=== PATIENT | female | born 1975 | race Caucasian/White ===

== ENCOUNTER → 2016-09-02 | Day surgery (SDC) | payer BC ==
[2016-08-31 07:38] VITALS: BMI 41.0
[~2016-09-02] VITALS: Ht 165.1 cm; Wt 110.9 kg
[~2016-09-02] MED LIST: B-COTAB18 PO; BUPR-79 PO; BXN500 PO; CALCTAB36 PO; CEFD1CAP14 PO; CHOL1CAP85 PO; FENTANYL CITRATE INJ 50 MCG/1 ML 2 ML VIAL ONE; FRCT/ PO; LEVO200T PO; LEVO25TA PO; LIDOCAINE HCL 2% 2 ML VIAL (20MG/ML) ONE; METF500T5 PO; MISCCAP80 PO; PROPOFOL IV EMULSION 10 MG/ML 20 ML VIAL IV ONE; QSTP PO; TPM/50 PO
[2016-09-02 14:36] VITALS: Ht 165.1 cm; Wt 110.9 kg
--- NOTE | 2016-09-02 15:12 | Endo History and Physical ---
History & Physical Date of Service: Sep 02, 2016. Chief Complaint: DIARRHEA Referring Physician: DR PALACIOS History of Present Illness 41 yo CF who presents for colonoscopy secondary to diarrhea. Past Medical History Hypertension, Thyroid Disease, Depression Past Surgical History Hx Cardiac Surgery: No Hx Internal Defibrillator: No Hx Pacemaker: No Hx Abdominal Surgery: Yes (BRYANT, 3 C-SECTIONS, BIRDIE, LAPAROSCOPY, TUBAL LIGATION) Hx of Implantable Prosthesis: No Hx Post-Op Nausea and Vomiting: No Hx Cancer Surgery: No Hx Thoracic Surgery: No Hx Orthopedic: No Hx Urinary Tract Surgery: Yes (BLADDER SLING) Family History IBD Social History Smoking Status: Current Every Day Smoker Hx Substance Use: No Hx Alcohol Use: No Allergies Coded Allergies: Amoxicillin (Verified Allergy, Mild, RASH, 09/02/16) Clavulanic Acid (Verified Allergy, Mild, RASH, 09/02/16) Morphine (Unverified Allergy, Unknown, UNSURE OF REACTION SHE HAD, 09/02/16) Promethazine (Verified Allergy, Unknown, ITCHING, 09/02/16) Tomato (Verified Allergy, Unknown, RASH, 09/02/16) Hydromorphone (Verified Adverse Reaction, Intermediate, ABDOMINAL CRAMPING /CHEST DISCOMFORT, 09/02/16) Current Medications Reported Home Medications Medications Dose Route/Sig Max Daily Dose Days Date Category Vitamin B Complex (B-Complex Vitamins) 1 Tab Tab 1 Tab PO QPM 08/31/16 Reported Synthroid (Levothyroxine Sodium) 200 Mcg Tab 200 Mcg PO QAM 08/31/16 Reported Synthroid (Levothyroxine Sodium) 25 Mcg Tab 25 Mcg PO 5XD 08/31/16 Reported Vitamin D3 (Cholecalciferol) 10,000 Unit Cap 1 Cap PO HS 08/31/16 Reported Omnicef (Cefdinir) 300 Mg Cap 300 Mg PO Q12H 07/19/16 Reported Calcitrate (Calcium Citrate-Vitamin D) 1 Tab Tab 1 Tab PO HS 05/17/16 Reported Clarithromycin 500 Mg Tab 1,000 Mg PO BID 05/17/16 Reported Topamax (Topiramate) 50 Mg Tab 50 Mg PO BID 05/17/16 Reported Glucophage Er (Metformin HCl) 500 Mg Tab 1 Tab PO BID 05/17/16 Reported Probiotic (Probiotic Product) 1 Cap Cap 1 Cap PO DAILY AFTER ANX 12/25/15 Reported Vital Signs Weight (Kilograms): 110.91 Height (Feet): 5 Height (Inches): 5 Date Time Temp Pulse Resp B/P Pulse Ox O2 Delivery O2 Flow Rate FiO2 09/02/16 14:43 36.4 79 20 155/87 98 Room Air Physical Exam General Appearance: WD/WN, no apparent distress Respiratory/Chest: Auscultation: breath sounds normal Cardiovascular: Heart Auscultation: RRR Abdomen: Bowel Sounds: normal Inspection & Palpation: soft, non-distended, no tenderness, guarding & rebound Assessment and Plan Assessment: 41 yo CF who presents for colonoscopy secondary to diarrhea. Plan: Proceed with colonoscopy.
--- NOTE | 2016-09-02 15:56 | Discharge Instructions ---
Endoscopy Patient Instructions Date / Procedure(s) Performed Sep 02, 2016. Colonoscopy Allergy Information Coded Allergies: Amoxicillin (Verified Allergy, Mild, RASH, 09/02/16) Clavulanic Acid (Verified Allergy, Mild, RASH, 09/02/16) Morphine (Unverified Allergy, Unknown, UNSURE OF REACTION SHE HAD, 09/02/16) Promethazine (Verified Allergy, Unknown, ITCHING, 09/02/16) Tomato (Verified Allergy, Unknown, RASH, 09/02/16) Hydromorphone (Verified Adverse Reaction, Intermediate, ABDOMINAL CRAMPING /CHEST DISCOMFORT, 09/02/16) Discharge Date / Findings Sep 02, 2016. Colon polyps Random colon biopsies Random stool studies External hemorrhoids Medication Instructions OK to resume all medications today as prescribed. Reported Home Medications Medications Dose Route/Sig Max Daily Dose Days Date Category Vitamin B Complex (B-Complex Vitamins) 1 Tab Tab 1 Tab PO QPM 08/31/16 Reported Synthroid (Levothyroxine Sodium) 200 Mcg Tab 200 Mcg PO QAM 08/31/16 Reported Synthroid (Levothyroxine Sodium) 25 Mcg Tab 25 Mcg PO 5XD 08/31/16 Reported Vitamin D3 (Cholecalciferol) 10,000 Unit Cap 1 Cap PO HS 08/31/16 Reported Omnicef (Cefdinir) 300 Mg Cap 300 Mg PO Q12H 07/19/16 Reported Calcitrate (Calcium Citrate-Vitamin D) 1 Tab Tab 1 Tab PO HS 05/17/16 Reported Clarithromycin 500 Mg Tab 1,000 Mg PO BID 05/17/16 Reported Topamax (Topiramate) 50 Mg Tab 50 Mg PO BID 05/17/16 Reported Glucophage Er (Metformin HCl) 500 Mg Tab 1 Tab PO BID 05/17/16 Reported Probiotic (Probiotic Product) 1 Cap Cap 1 Cap PO DAILY AFTER ANX 12/25/15 Reported Provider Instructions Activity Restrictions - No exercising or heavy lifting for 24 hours. - Do not drink alcohol the day of the procedure. - Do not drive a car or operate machinery until the day after the procedure. - Do not make any important decisions or sign important papers in 24 hours after the procedure. Following Day: - Return to full activity which may include returning to work/school. Diet Start your diet with liquids and light foods (jello, soup, juice, toast). Then eat your usual diet if not nauseated. Treatment For Common After Affects For mild abdominal pain, bloating, or excessive gas: - Rest - Eat lightly - Lie on right side Follow-Up Information Follow-up with DR PALACIOS as scheduled Anesthesia Information What You Should Know You have had a procedure that required some medicine to reduce anxiety and discomfort. This treatment is called moderate sedation. After receiving the treatment, you may be sleepy, but you will be able to breathe on your own. The effects of the treatment may last for several hours. Follow these instructions along with Activity/Diet recommendations noted above: * Do NOT do anything where dizziness or clumsiness would be dangerous. * Rest quietly at home today, then you can be up and about tomorrow. * Have a responsible person stay with you the rest of today. * You may have had an I.V. today. If so, you may take the dressing off later today. Recommendations Call your doctor if: * Trouble breathing * Continuous vomiting for more than 24 hours * Temperature above 101 degrees * Severe abdominal pain or bloating * Pain not relieved by pain medicine ordered * There is increased drainage or redness from any incision * A large amount of rectal bleeding greater than 2-3 tablespoons. (If you had a polyp/s removed or have hemorrhoids, a small amount of blood - from the rectum is to be expected.) * You have any unanswered questions or concerns. IN THE EVENT OF A SERIOUS EMERGENCY, GO TO THE NEAREST EMERGENCY ROOM Your discharge instructions were prepared by provider Chuck Bonilla. Patient Instructions Signature Page Jenifer Kilgore Patient (or Guardian) Signature/Date: I have read and understand the instructions given to me by my caregivers. Caregiver/RN/Doctor Signature/Date: The above-named patient and/or guardian has received patient instructions on this date. + Original Patient Signature Page (only) stays with chart. Please make copy for patient.
--- NOTE | 2016-09-02 16:05 | GI REPORT ---
Procedure Date: 09/02/2016 3:37 PM Procedure: Colonoscopy Indications: Chronic diarrhea Medicines: Monitored Anesthesia Care Complications: No immediate complications. Estimated Blood Loss: Estimated blood loss: none. Procedure: Pre-Anesthesia Assessment: - Prior to the procedure, a History and Physical was performed, and patient medications and allergies were reviewed. The patient's tolerance of previous anesthesia was also reviewed. The risks and benefits of the procedure and the sedation options and risks were discussed with the patient. All questions were answered, and informed consent was obtained. Prior Anticoagulants: The patient has taken no previous anticoagulant or antiplatelet agents. ASA Grade Assessment: II - A patient with mild systemic disease. After reviewing the risks and benefits, the patient was deemed in satisfactory condition to undergo the procedure. After I obtained informed consent, the scope was passed under direct vision. Throughout the procedure, the patient's blood pressure, pulse, and oxygen saturations were monitored continuously. The scope was introduced through the anus and advanced to the terminal ileum. The colonoscopy was performed without difficulty. The patient tolerated the procedure well. The quality of the bowel preparation was good. The terminal ileum, the appendiceal orifice and the rectum were photographed. Findings: Three sessile polyps were found in the transverse colon. The polyps were 3 to 4 mm in size. These polyps were removed with a hot snare. Resection and retrieval were complete. Multiple random biopsies were obtained with cold forceps for histology in the entire colon. Fluid aspiration for cytology was performed in the entire colon. Non-bleeding external hemorrhoids were found during perianal exam. The hemorrhoids were medium-sized. Impression: - Three 3 to 4 mm polyps in the transverse colon, removed with a hot snare. Resected and retrieved. - Non-bleeding external hemorrhoids. - Multiple random biopsies were obtained in the entire colon. - Fluid aspiration was performed. Recommendation: - Resume previous diet. - Continue present medications. - Repeat colonoscopy for surveillance based on pathology results. - Return to primary care physician as previously scheduled. Chuck Bonilla DO 09/02/2016 4:05:16 PM This report has been signed electronically. Note Initiated On: 09/02/2016 3:37 PM
[2016-09-02 16:26] VITALS: BP 131/80; PULSE 71; O2SAT 98
--- NOTE | 2016-09-02 16:31 | Anesthesiology Progress Note ---
Anesthesia Post Op Note Date & Time Sep 02, 2016 at 16:31 Vital Signs Pain Intensity: 0 Vital Signs Past 12 Hours Date Time Temp Pulse Resp B/P Pulse Ox O2 Delivery O2 Flow Rate FiO2 09/02/16 16:26 71 20 131/80 98 Room Air 09/02/16 16:11 73 20 126/84 98 Room Air 09/02/16 15:56 80 20 117/79 95 Room Air 09/02/16 14:43 36.4 79 20 155/87 98 Room Air Notes Mental Status: alert / awake / arousable, participated in evaluation Pt Amnestic to Procedure: Yes Nausea / Vomiting: adequately controlled Pain: adequately controlled Airway Patency, RR, SpO2: stable & adequate BP & HR: stable & adequate Hydration State: stable & adequate Anesthetic Complications: no major complications apparent
== END | disposition home or self-care (01) ==
LOC: C.GI 14:22
PROVIDERS: ATTEND Internal Medicine
DX: K52.9 Noninfective gastroenteritis and colitis, unspecified (principal); D12.3 Benign neoplasm of transverse colon; K64.4 Residual hemorrhoidal skin tags; I10 Essential (primary) hypertension; E07.9 Disorder of thyroid, unspecified; F32.9 Major depressive disorder, single episode, unspecified; Z98.51 Tubal ligation status; Z98.890 Other specified postprocedural states; F17.210 Nicotine dependence, cigarettes, uncomplicated; Z88.1 Allergy status to other antibiotic agents; Z88.8 Allergy status to other drugs, medicaments and biological substances

== ENCOUNTER 2016-10-25 01:34 | Inpatient (IN) | payer BC ==
[~2016-10-25] VITALS: Ht 165.1 cm; Wt 112.5 kg
[~2016-10-25 01:34] MED LIST changes: -BUPR-79 PO; -FENTANYL CITRATE INJ 50 MCG/1 ML 2 ML VIAL ONE; -FRCT/ PO; -LIDOCAINE HCL 2% 2 ML VIAL (20MG/ML) ONE; -PROPOFOL IV EMULSION 10 MG/ML 20 ML VIAL IV ONE; -QSTP PO
[2016-10-25 02:24] LABS: URINE APPEARANCE CLEAR (CLEAR); URINE BILIRUBIN NEG (NEG); URINE COLOR YELLOW; URINE EPITHELIAL CELL AUTO 0-5 /lpf (0-5); URINE NITRITE NEG (NEG); URINE SPECIFIC GRAVITY 1.006 (1.000-1.030); UROBILINOGEN NEG (NEG); ZZURINE CULT IF INDIC CATH NO
[2016-10-25 02:25] LABS: MANUAL MICROSCOPIC REQUIRED? NO; REVIEW REQ? NO
[2016-10-25 02:37] LABS: INR 0.9 (0.9-1.1); PARTIAL THROMBOPLASTIN RATIO 0.9; PROTHROMBIN TIME (PATIENT) 9.5 SECONDS (9.0-12.0)
[2016-10-25 02:42] LABS: CALCIUM 9.1 mg/dl (8.5-10.1); CREATININE 0.83 mg/dl (0.60-1.20); POTASSIUM 4.1 mmol/L (3.5-5.1)
[2016-10-25 03:02] LABS: HEMATOCRIT 41.6 % (37-47); MEAN CELL VOLUME 89.1 fL (80-100); MEAN CORPUSCULAR HEMOGLOBIN 30.6 pg (25-34); MEAN CORPUSCULAR HGB CONC 34.4 g/dl (32-36); MEAN PLATELET VOLUME 11.7 fL (7.4-10.4); PLATELET COUNT 234 K/uL (130-400); RED BLOOD COUNT 4.67 M/uL (4.2-5.4); WHITE BLOOD COUNT 11.58 K/uL (4.8-10.8)
[2016-10-25 03:06] LABS: LYME DISEASE AB IGG NEG (NEG); LYME DISEASE AB IGM NEG (NEG)
[2016-10-25 03:56] LABS: BASO % 0.3 %; BASO ABS # 0.04 K/uL (0-0.2); COMPLETE YES; EOS % 1.7 %; IG% 0.4 %; LARGE PLATELETS 1+; LYMPH % 30.9 %; LYMPH ABS # 3.58 K/uL (1.2-3.4); MONO % 6.6 %; NEUT % 60.1 %
[2016-10-25] MEDS ORDERED: ONDANSETRON INJ 2 MG/ML 2 ML VIAL IV PRN (04:00)
[2016-10-25] MEDS ORDERED: ACETAMINOPHEN 325 MG TAB PO PRN (04:00)
[2016-10-25] MEDS ORDERED: METHYLPREDNISOLONE 125 MG VIAL IV STA (04:00)
[2016-10-25] MEDS ORDERED: IV FLUIDS COMPLETED PRN (04:45)
--- NOTE | 2016-10-25 05:23 | EMERGENCY ROOM VISIT NOTE ---
History Report prepared by Lenka: Delma Kebede Under the Supervision of: Dr. Gail Soriano D.O. 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 The patient states that she seemed to become weak this evening and sudden onset AMS very similar to presentation from 1 year ago when she had encephalopathy which was thought to be secondary to lyme disease. He reports that her doctor has had her on high dose antibiotics for a long time and 3 weeks ago he started to take her off of it. He notes that the glaze in her eyes is similar to before and her symptoms today came on suddenly. Source of History: spouse/significant other Onset: just SHAKE MAKER Position: other (global) Quality: other (AMS) Timing: constant Note: Pt notes glaze in eyes. Review of Systems See HPI for pertinent positives & negatives. A total of 10 systems reviewed and were otherwise negative. Past Medical & Surgical Medical Problems: (1) Altered mental status (2) Blurry vision (3) Dysfunctional uterine bleeding (4) Hypothyroidism (5) Peptic reflux disease (6) Supracervical hysterectomy (7) Temporomandibular [id number] syndrome (8) Weakness of both lower extremities Family History FH: lung disease FHx: cancer FHx: gallbladder disease Hypertension Social History Smoking Status: Current Every Day Smoker Alcohol Use: none Drug Use: none, other Marital Status: in relationship Housing Status: lives with family, lives with significant other Occupation Status: employed Current/Historical Medications Scheduled B-Complex Vitamins (Vitamin B Complex), 1 TAB PO QPM Calcium Citrate-Vitamin D (Calcitrate), 1 TAB PO HS Cholecalciferol (Vitamin D3), 1 CAP PO HS Levothyroxine Sodium (Synthroid), 25 MCG PO DAILY Levothyroxine Sodium (Synthroid), 200 MCG PO QAM Metformin Hcl Er (Glucophage Er), 1,000 MG PO BID Topiramate (Topamax), 50 MG PO BID Allergies Coded Allergies: Amoxicillin (Verified Allergy, Mild, RASH, 10/25/16) Clavulanic Acid (Verified Allergy, Mild, RASH, 10/25/16) Morphine (Unverified Allergy, Unknown, UNSURE OF REACTION SHE HAD, 10/25/16 ) Promethazine (Verified Allergy, Unknown, ITCHING, 10/25/16) Tomato (Verified Allergy, Unknown, RASH, 10/25/16) Hydromorphone (Verified Adverse Reaction, Intermediate, ABDOMINAL CRAMPING /CHEST DISCOMFORT, 10/25/16) Physical Exam Vital Signs Date Time Temp Pulse Resp B/P Pulse Ox O2 Delivery O2 Flow Rate FiO2 10/25/16 02:06 90 10/25/16 01:43 37.3 74 16 146/90 98 Room Air 10/25/16 01:43 98 Room Air Physical Exam General: Opens eyes to verbal or painful stimuli. HEENT: Head - normocephalic and atraumatic Pupils are equal, round, and reactive to light. Extraocular eye muscles are intact, and sclera are anicteric. Nose - moist nasal mucosa without discharge. Mouth - moist buccal mucosa. Oropharynx is nonerythematous and there is no tonsillar exudate or edema noted. Neck: Supple; no JVD, nuchal rigidity, cervical lymphadenopathy. Heart: Regular rate and rhythm. There is a normal S1 and S2 with no murmurs, clicks, or gallops appreciated. Lungs: Clear to auscultation bilaterally with no wheezes, rales, or rhonchi. Abdomen: Soft, completely nontender, nondistended, with good bowel sounds. There are no palpable pulsatile masses or hepatosplenomegaly. There is no guarding, rigidity, or rebound noted. Extremities: No evidence of cyanosis, clubbing, or edema. There are easily palpable peripheral pulses. Skin: warm and dry with good turgor and no rashes. Neuro: Would not follow any commands. She seemed to move all 4 extremities without any difficulty. Medical Decision & Procedures ER Provider Diagnostic Interpretation: Radiology results as stated below per my review and the radiologist's interpretation: CT Head: Comparison 12/02/2015 No ICH, mass effect or edema. No evidence of acute cortical stroke. Visualized sinuses and mastoid air cells are clear. Chest X-Ray: Under penetrated, no pulmonary infiltrates, cardiomegaly. Laboratory Results Test 10/25/16 01:50 10/25/16 01:57 10/25/16 02:05 10/25/16 02:53 Prothrombin Time 9.5 SECONDS (9.0-12.0) Prothromb Time International Ratio 0.9 (0.9-1.1) Activated Partial Thromboplast Time 24.6 SECONDS (21.0-31.0) Partial Thromboplastin Ratio 0.9 Est Creatinine Clear Calc Drug Dose 113.5 ml/min Total Bilirubin 0.3 mg/dl (0.2-1) Aspartate Amino Transf (AST/SGOT) 11 U/L (15-37) Alanine Aminotransferase (ALT/SGPT) 32 U/L (12-78) Alkaline Phosphatase 100 U/L (45-117) Total Protein 7.3 gm/dl (6.4-8.2) Albumin 3.7 gm/dl (3.4-5.0) Globulin 3.6 gm/dl (2.5-4.0) Albumin/Globulin Ratio 1.0 (0.9-2) Chemistry Specimen Hemolysis Lyme Disease IgG Antibody NEG (NEG) Lyme Disease IgM Antibody NEG (NEG) Bedside Lactic Acid Venous 0.78 mmol/L (0.90-1.70) Urine Color YELLOW Urine Appearance CLEAR (CLEAR) Urine pH 6.0 (4.5-7.5) Urine Specific [place] 1.006 (1.000-1.030) Urine Protein NEG (NEG) Urine Glucose (UA) NEG (NEG) Urine Ketones NEG (NEG) Urine Occult Blood NEG (NEG) Urine Nitrite NEG (NEG) Urine Bilirubin NEG (NEG) Urine Urobilinogen NEG (NEG) Urine Leukocyte Esterase NEG (NEG) Urine WBC (Auto) 0 /hpf (0-5) Urine RBC (Auto) 0-4 /hpf (0-4) Urine Hyaline Casts (Auto) 0 /lpf (0-5) Urine Epithelial Cells (Auto) 0-5 /lpf (0-5) Urine Bacteria (Auto) NEG (NEG) RDW Standard Deviation 43.4 fL (36.4-46.3) RDW Coefficient of Variation 13.2 % (11.5-14.5) White Blood Count 11.58 K/uL (4.8-10.8) Red Blood Count 4.67 M/uL (4.2-5.4) Hemoglobin 14.3 g/dL (12.0-16.0) Hematocrit 41.6 % (37-47) Mean Corpuscular Volume 89.1 fL (80-100) Mean Corpuscular Hemoglobin 30.6 pg (25-34) Mean Corpuscular Hemoglobin Concent 34.4 g/dl (32-36) Platelet Count 234 K/uL (130-400) Mean Platelet Volume 11.7 fL (7.4-10.4) Neutrophils (%) (Auto) 60.1 % Lymphocytes (%) (Auto) 30.9 % Monocytes (%) (Auto) 6.6 % Eosinophils (%) (Auto) 1.7 % Basophils (%) (Auto) 0.3 % Neutrophils # (Auto) 6.94 K/uL (1.4-6.5) Lymphocytes # (Auto) 3.58 K/uL (1.2-3.4) Monocytes # (Auto) 0.77 K/uL (0.11-0.59) Eosinophils # (Auto) 0.20 K/uL (0-0.5) Basophils # (Auto) 0.04 K/uL (0-0.2) Immature Granulocyte % (Auto) 0.4 % Immature Granulocyte # (Auto) 0.05 K/uL (0.00-0.02) Large Platelets 1+ Laboratory results per my review. ECG Indication: altered mental status Rate (beats per minute): 73 Rhythm: normal sinus Findings: no acute ischemic change, no ectopy ED Course 0137: Past medical records reviewed. The patient was evaluated in room A2. A complete history and physical exam was performed. An IV lock was initiated and labs are drawn as above. The patient went for a CT scan of the brain. 0229: I reevaluated the patient. She is able to drink liquid. She still seems quite confused. 0316: I reevaluated the patient. She has returned to her normal state. 0352: Discussed the patient's case with Dr. Amador of [facility]. The patient will be evaluated for further management. 0407: Upon reevaluation, I discussed findings and results with the patient. She verbalized agreement of the treatment plan. I spoke with Dr. Amador of the [facility] Hospitalist Service. The patient will be evaluated for further management and care. Medical Decision The patient is a 41 year old female who presents to the ED with altered mental status. Differential diagnosis includes seizure, post-ictal state, recurrent encephalopathy, acute CVA. LABS: WBC 11.5 Stable H&H Negative Lactic Acid Normal LFTs and Renal Function Urinalysis Normal Lyme IDG Negative Lyme IGM Negative This is a 41-year-old female patient presents to the emergency department with a sudden episode of altered mental status. The denies any seizure activity at home. 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 He describes her onset of symptoms very similar to those when she was diagnosed with encephalopathy. The patient's mental status has returned to normal here in the emergency department. CT scan of the brain was unremarkable. I was concerned about the possibility of a seizure since the patient appeared to be postictal upon her arrival here in the emergency department. Of note, the patient had recently decreased her oral dose of antibiotics that she had been on long-term for Lyme disease. Consults Time Called: [phone] Consulting Physician: Marjorie - [facility] Returned Call: [phone] Discussed the patient's case with Dr. Amador of [facility]. The patient will be evaluated for further management. Impression Primary Impression: Encephalopathy Scribe Attestation The scribe's documentation has been prepared under my direction and personally reviewed by me in its entirety. I confirm that the note above accurately reflects all work, treatment, procedures, and medical decision making performed by me. Departure Information Dispostion Being Evaluated By Hospitalist Referrals Alin Sprague M.D. (PCP) Patient Instructions My [facility]
[2016-10-25] MEDS: NSS + 20MEQ KCL 1000ML 1,000 ML IV SCH ×2 (05:30→17:28)
[2016-10-25 05:45] VITALS: BP 131/79; PULSE 71; TEMP 36.8; O2SAT 95; Ht 165.1 cm; Wt 112.5 kg
[2016-10-25] MEDS: LEVOTHYROXINE SODIUM TAB 200 MCG, LEVOTHYROXINE SODIUM TAB 25 MCG PO SCH ×2 (06:08)
[2016-10-25] MEDS: CEFTRIAXONE SOD INJ 1 GM in DEXTROSE 5% ADD-VANTAGE 50ML 50 ML IV SCH (06:08)
--- NOTE | 2016-10-25 06:27 | History and Physical ---
History & Physical Date & Time of Service: Oct 25, 2016 at 06:14 Chief Complaint: Altered Mental Status Primary Care Physician: Alin Sprague M.D. History of Present Illness Source: patient, partner The patient is a 41-year-old female who presents to the emergency department with the sudden onset of altered mental status began to spread arrival. Her reports that she seemed to be weak earlier in the evening and then she suddenly became altered in a similar presentation to 12/03/2015 when she was diagnosed with Lyme disease encephalopathy. He reports that she had been on antibiotics for long interval time, and she was tapered off antibiotics beginning 3 weeks ago and is now on none. She's had no recent travel, no sick exposures. They continue to live in the same area where there are a number of ticks, but she has not had any overt tick bites. 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 Family History FH: lung disease FHx: cancer FHx: gallbladder disease Hypertension Social History Smoking Status: Current Every Day Smoker Smokeless Tobacco Use: No Alcohol Use: none Drug Use: none, other Marital Status: , in relationship Housing status: lives with family Occupational Status: employed Immunizations History of Influenza Vaccine: No History of Tetanus Vaccine?: No History of Pneumococcal: No History of Hepatitis B Vaccine: No Multi-Drug Resistant Organisms History of MDRO: No Allergies Coded Allergies: Amoxicillin (Verified Allergy, Mild, RASH, 10/25/16) Clavulanic Acid (Verified Allergy, Mild, RASH, 10/25/16) Morphine (Unverified Allergy, Unknown, UNSURE OF REACTION SHE HAD, 10/25/16 ) Promethazine (Verified Allergy, Unknown, ITCHING, 10/25/16) Tomato (Verified Allergy, Unknown, RASH, 10/25/16) Hydromorphone (Verified Adverse Reaction, Intermediate, ABDOMINAL CRAMPING /CHEST DISCOMFORT, 10/25/16) Home Medications Scheduled B-Complex Vitamins (Vitamin B Complex), 1 TAB PO QPM Calcium Citrate-Vitamin D (Calcitrate), 1 TAB PO HS Cholecalciferol (Vitamin D3), 1 CAP PO HS Levothyroxine Sodium (Synthroid), 25 MCG PO DAILY Levothyroxine Sodium (Synthroid), 200 MCG PO QAM Metformin Hcl Er (Glucophage Er), 1,000 MG PO BID Topiramate (Topamax), 50 MG PO BID Review of Systems The patient denies chest pain, palpitations, shortness of breath, cough, lower extremity swelling, vision change, hearing change, sore throat, fevers, chills, sweats, weight change, vomiting, abdominal pain, pelvic pain, blood in urine or stool, dysuria, urinary frequency or urgency, abnormal bruising or bleeding, imbalance, focal weakness, numbness or tingling in arms or legs, arthralgias or myalgias, back or neck pain, night sweats, or allergy symptoms. The review of systems is otherwise negative other than for that already noted above, and at least 10 systems have been reviewed. Physical Exam Vital Signs Date Time Temp Pulse Resp B/P Pulse Ox O2 Delivery O2 Flow Rate FiO2 10/25/16 05:45 36.8 71 20 131/79 95 Room Air 10/25/16 04:39 73 18 140/91 97 Room Air 10/25/16 02:06 90 10/25/16 01:43 37.3 74 16 146/90 98 Room Air 10/25/16 01:43 98 Room Air The patient is awake, well-developed and adequately nourished, alert and oriented 3, normocephalic and atraumatic, lying in bed and in no acute distress. HEENT--PERRL, EOMI, mucous membranes and oropharynx dry. Neck--supple, no JVD or bruits, thyroid normal, trachea midline, no adenopathy. Heart--normal S1 and S2, no extra beats, no murmurs, rubs or gallops. Lungs--clear bilaterally with good air movement, no respiratory distress, no accessory muscle use. Abdomen--normal bowel sounds and soft, nontender and nondistended, no hernias or masses, no organomegaly. Extremities--no cyanosis, clubbing or edema. There are good distal pulses b/l. Dermatologic--normal skin turgor, normal color, warm and dry, no abnormal lymph nodes, no rash. Neurologic--cranial nerves II through XII grossly intact, motor and sensory examination normal. Rheumatologic--normal range of motion, nontender, muscles and joints. Psychiatric--normal affect. Diagnostics Laboratory Results Results Past 24 Hours Test 10/25/16 01:50 10/25/16 01:57 10/25/16 02:05 10/25/16 02:53 Range/Units Prothrombin Time 9.5 9.0-12.0 SECONDS Prothromb Time International Ratio 0.9 0.9-1.1 Activated Partial Thromboplast Time 24.6 21.0-31.0 SECONDS Partial Thromboplastin Ratio 0.9 Sodium Level 142 136-145 mmol/L Potassium Level 4.1 3.5-5.1 mmol/L Chloride Level 109 98-107 mmol/L Carbon Dioxide Level 26 21-32 mmol/L Anion Gap 7.0 3-11 mmol/L Blood Urea Nitrogen 17 7-18 mg/dl Creatinine 0.83 0.60-1.20 mg/dl Est Creatinine Clear Calc Drug Dose 113.5 ml/min Estimated GFR () 103.0 Estimated GFR (Non- 88.8 BUN/Creatinine Ratio 20.0 10-20 Random Glucose 99 70-99 mg/dl Calcium Level 9.1 8.5-10.1 mg/dl Total Bilirubin 0.3 0.2-1 mg/dl Aspartate Amino Transf (AST/SGOT) 11 15-37 U/L Alanine Aminotransferase (ALT/SGPT) 32 12-78 U/L Alkaline Phosphatase 100 45-117 U/L Total Protein 7.3 6.4-8.2 gm/dl Albumin 3.7 3.4-5.0 gm/dl Globulin 3.6 2.5-4.0 gm/dl Albumin/Globulin Ratio 1.0 0.9-2 Chemistry Specimen Hemolysis Lyme Disease IgG Antibody NEG NEG Lyme Disease IgM Antibody NEG NEG Bedside Lactic Acid Venous 0.78 0.90-1.70 mmol/L Urine Color YELLOW Urine Appearance CLEAR CLEAR Urine pH 6.0 4.5-7.5 Urine Specific [place] 1.006 1.000-1.030 Urine Protein NEG NEG Urine Glucose (UA) NEG NEG Urine Ketones NEG NEG Urine Occult Blood NEG NEG Urine Nitrite NEG NEG Urine Bilirubin NEG NEG Urine Urobilinogen NEG NEG Urine Leukocyte Esterase NEG NEG Urine WBC (Auto) 0 0-5 /hpf Urine RBC (Auto) 0-4 0-4 /hpf Urine Hyaline Casts (Auto) 0 0-5 /lpf Urine Epithelial Cells (Auto) 0-5 0-5 /lpf Urine Bacteria (Auto) NEG NEG White Blood Count 11.58 4.8-10.8 K/uL Red Blood Count 4.67 4.2-5.4 M/uL Hemoglobin 14.3 12.0-16.0 g/dL Hematocrit 41.6 37-47 % Mean Corpuscular Volume 89.1 80-100 fL Mean Corpuscular Hemoglobin 30.6 25-34 pg Mean Corpuscular Hemoglobin Concent 34.4 32-36 g/dl Platelet Count 234 130-400 K/uL Mean Platelet Volume 11.7 7.4-10.4 fL Neutrophils (%) (Auto) 60.1 % Lymphocytes (%) (Auto) 30.9 % Monocytes (%) (Auto) 6.6 % Eosinophils (%) (Auto) 1.7 % Basophils (%) (Auto) 0.3 % Neutrophils # (Auto) 6.94 1.4-6.5 K/uL Lymphocytes # (Auto) 3.58 1.2-3.4 K/uL Monocytes # (Auto) 0.77 0.11-0.59 K/uL Eosinophils # (Auto) 0.20 0-0.5 K/uL Basophils # (Auto) 0.04 0-0.2 K/uL RDW Standard Deviation 43.4 36.4-46.3 fL RDW Coefficient of Variation 13.2 11.5-14.5 % Immature Granulocyte % (Auto) 0.4 % Immature Granulocyte # (Auto) 0.05 0.00-0.02 K/uL Large Platelets 1+ Microbiology Results 10/25/16 Blood Culture, Received Pending 10/25/16 Blood Culture, Received Pending Diagnostic Radiology CAT scan of the head without contrast shows no acute findings. EKG EKG shows normal sinus rhythm at 73 bpm, there are no acute ST-T changes. Impression Assessment and Plan Altered mental status/history [facility] COOK Lyme encephalopathy 12/03/2015--patient will be admitted to the telemetry unit, for cardiac rhythm monitoring, and frequent neuro checks. She appears be back to her baseline at this point. She reports that she has been doing well until just prior to arrival, and associates the abrupt worsening tapering to off of antibiotics that she had been on per her physician. Her Lyme antibody tests are negative today. Continue topiramate 50 mg by mouth twice a day. We'll start her on hydroxychloroquine 200 mg by mouth twice a day, to deal with postinflammatory Lyme state, and she can discuss with her physician in the outpatient setting the re starting of antibiotics if they choose. Microcytic colitis--her antibodies have been tapered recently due to the persistence of diarrhea, with colonoscopy revealing this diagnosis. We'll do a trial of cholestyramine 4 g twice a day and increase probiotics. Reducing her metformin is a good choice to help minimize issues with loose stools. Hypothyroidism--continue levothyroxine sodium at 225 g by mouth daily. Diabetes mellitus--she has tapered her metformin to 500 mg by mouth daily. Level of Care Telemetry Advanced Directives Existing Advance Directive: No Existing Living Will: No Existing Power of Tinning Machine Set Up Operator: No Resuscitation Status FULL RESUSCITATION VTE Prophylaxis VTE Risk Assessment Done? Y/N: Yes Risk Level: Low Given or contraindicated: SCD's Social Service Consult None Apply
[2016-10-25 07:22] VITALS: BP 130/80; PULSE 67; TEMP 36.8; O2SAT 97
[2016-10-25] MEDS: LACTOBACILLUS ACIDOPHILUS (FLORANEX) TAB PO SCH ×3 (08:16→17:24)
[2016-10-25] MEDS: HYDROXYCHLOROQUINE SULFATE 200 MG TAB PO SCH ×2 (08:16→21:45)
[2016-10-25] MEDS: TOPIRAMATE 25 MG TAB PO SCH ×2 (08:17→21:45)
[2016-10-25] MEDS: VITAMIN B COMPLEX TAB PO SCH (08:17)
--- NOTE | 2016-10-25 08:34 | DIAGNOSTIC IMAGING REPORT ---
CHEST ONE VIEW PORTABLE CLINICAL HISTORY: Sepsis COMPARISON STUDY: Chest radiograph January 09, 2016. FINDINGS: This exam is compromised by suboptimal penetration. No pneumothorax or pleural effusion is present. There is no lobar consolidation. There is no evidence of pulmonary edema. Cardiomediastinal silhouette is stable. IMPRESSION: No acute cardiopulmonary findings. Electronically signed by: Rubén Lemus M.D. 10/25/2016 8:33 AM Dictated Date/Time: 10/25/2016 8:33 AM
--- NOTE | 2016-10-25 08:34 | DIAGNOSTIC IMAGING REPORT ---
CT OF THE HEAD WITHOUT CONTRAST CLINICAL HISTORY: Confusion. Lyme disease. COMPARISON STUDY: Head CT December 03, 2015 and MRI of the brain December 03, 2015. CT DOSE: 537.48 mGy.cm TECHNIQUE: Helical axial images of the head were obtained without IV contrast. Automated exposure control was utilized for the study. FINDINGS: No acute intracranial hemorrhage, midline shift or mass effect is present. Ventricular system is normal. Basilar cisterns are patent. There are no extra-axial collections. Salgado-white differentiation is maintained. There are no findings to suggest acute dural sinus thrombosis or acute territorial infarct. There is no calvarial fracture. Visualized portions of the sinuses and mastoid air cells are clear. IMPRESSION: No acute intracranial findings. Electronically signed by: Rubén Lemus M.D. 10/25/2016 8:32 AM Dictated Date/Time: 10/25/2016 8:31 AM
[2016-10-25] MEDS ORDERED: LEVOTHYROXINE 200 MCG TAB PO SCH (09:00)
[2016-10-25 11:49] VITALS: BP 130/84; PULSE 72; TEMP 36.6; O2SAT 98
[2016-10-25] MEDS: CHOLESTYRAMINE LIGHT 4 GM PKT PO SCH ×2 (11:52→22:00)
[2016-10-25] MEDS ORDERED: NURSING VERBAL MED ORDER ONE (12:00)
[2016-10-25] MEDS ORDERED: NICOTINE 14 MG/24 HR TDSY TD ONE (12:45)
[2016-10-25 15:27] VITALS: BP 134/87; PULSE 66; TEMP 36.7; O2SAT 97
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
[2016-10-25 20:23] VITALS: BP 120/83; PULSE 72; TEMP 36.4; O2SAT 97
[2016-10-25] MEDS ORDERED: CHOLECALCIFEROL 1000 INTER.UNIT TAB PO SCH (21:00)
[2016-10-25] MEDS ORDERED: CALCIUM 600MG + VIT D 400 IU TAB PO SCH (21:00)
[2016-10-25 23:04] VITALS: BP 135/89; PULSE 67; TEMP 36.5; O2SAT 99
[2016-10-26] VITALS (7 sets, daily range): BP systolic 121–130; BP diastolic 76–84; PULSE 53–67; TEMP 36.5–36.7; O2SAT 97–99
[2016-10-26 06:13] LABS: HEMATOCRIT 41.6 % (37-47); MEAN CELL VOLUME 89.7 fL (80-100); MEAN CORPUSCULAR HGB CONC 33.4 g/dl (32-36); MEAN PLATELET VOLUME 11.6 fL (7.4-10.4); PLATELET COUNT 227 K/uL (130-400); RED BLOOD COUNT 4.64 M/uL (4.2-5.4); WHITE BLOOD COUNT 13.55 K/uL (4.8-10.8)
[2016-10-26] MEDS: NSS + 20MEQ KCL 1000ML 1,000 ML IV SCH (06:16)
[2016-10-26] MEDS: CEFTRIAXONE SOD INJ 1 GM in DEXTROSE 5% ADD-VANTAGE 50ML 50 ML IV SCH (06:16)
[2016-10-26] MEDS: LEVOTHYROXINE SODIUM TAB 200 MCG, LEVOTHYROXINE SODIUM TAB 25 MCG PO SCH ×2 (06:16)
[2016-10-26 06:40] LABS: BUN/CREATININE RATIO 16.7 (10-20); CALCIUM 8.9 mg/dl (8.5-10.1); CREATININE 0.87 mg/dl (0.60-1.20); POTASSIUM 3.9 mmol/L (3.5-5.1)
[2016-10-26 07:41] LABS: BASO % 0.3 %; BASO ABS # 0.04 K/uL (0-0.2); COMPLETE YES; EOS % 1.1 %; IG% 0.4 %; LYMPH % 34.2 %; LYMPH ABS # 4.63 K/uL (1.2-3.4); MONO % 6.7 %; NEUT % 57.3 %
[2016-10-26] MEDS: LACTOBACILLUS ACIDOPHILUS (FLORANEX) TAB PO SCH ×2 (08:37→13:04)
[2016-10-26] MEDS: HYDROXYCHLOROQUINE SULFATE 200 MG TAB PO SCH (08:37)
[2016-10-26] MEDS: VITAMIN B COMPLEX TAB PO SCH (08:38)
[2016-10-26] MEDS: TOPIRAMATE 25 MG TAB PO SCH (08:38)
[2016-10-26] MEDS ORDERED: NICOTINE 14 MG/24 HR TDSY TD SCH (09:00)
--- NOTE | 2016-10-26 09:03 | EEG Procedure Note ---
EEG Procedure Note Date of Service Oct 26, 2016. Start / End Times Start Time: 8:02 AM End Time: 8:22 AM Referring Physician Cain Schmidt History This is a 41-year-old female who presents with altered mental status. EEG for further evaluation of possible seizure etiology. Home Medication List Scheduled B-Complex Vitamins (Vitamin B Complex), 1 TAB PO QPM Calcium Citrate-Vitamin D (Calcitrate), 1 TAB PO HS Cholecalciferol (Vitamin D3), 1 CAP PO HS Levothyroxine Sodium (Synthroid), 25 MCG PO DAILY Levothyroxine Sodium (Synthroid), 200 MCG PO QAM Metformin Hcl Er (Glucophage Er), 1,000 MG PO BID Topiramate (Topamax), 50 MG PO BID Inpatient Medication List Current Inpatient Medications Medications (Trade) Dose Ordered Sig/Dirk Route Start Time Stop Time Status Last Admin Dose Admin Potassium Chloride/Sodium Chloride (Nss + 20meq KCl 1000ml) 1,000 ml @ 80 mls/hr [id number] IV 10/25/16 05:30 11/24/16 05:29 10/26/16 06:16 80 MLS/HR Acetaminophen (Tylenol Tab) 650 mg Q4H PRN PO 10/25/16 04:00 11/24/16 03:59 10/25/16 17:31 325 MG Topiramate (Topamax Tab) 50 mg BID PO 10/25/16 09:00 11/24/16 08:59 10/26/16 08:38 50 MG Vitamin B Complex (Vitamin B Complex) 1 tab QAM PO 10/25/16 09:00 11/24/16 08:59 10/26/16 08:38 1 TAB Calcium/Vitamin D (Caltrate Plus Tab) 1 tab HS PO 10/25/16 21:00 11/24/16 20:59 10/25/16 21:45 1 TAB Cholecalciferol (Vitamin D Tab) 10,000 inter.unit HS PO 10/25/16 21:00 11/24/16 20:59 10/25/16 21:45 10,000 INTER.UNIT Ondansetron HCl (Zofran Inj) 4 mg Q6H PRN IV 10/25/16 04:00 11/24/16 03:59 Hydroxychloroquine Sulfate (Plaquenil Tab) 200 mg BID PO 10/25/16 09:00 11/24/16 08:59 10/26/16 08:37 200 MG Cholestyramine Resin 4 gm 4 gm BID@10,22 PO 10/25/16 10:00 11/24/16 09:59 10/25/16 11:52 4 GM Ceftriaxone Sodium/Dextrose (Rocephin Inj/ Dextrose Add-[place] 50ML) 50 ml @ 100 mls/hr Q24H IV 10/25/16 06:00 10/27/16 05:59 10/26/16 06:16 100 MLS/HR Lactobacillus Acidophilus (Floranex Tab) 4 tab TIDM PO 10/25/16 08:00 11/24/16 07:59 10/26/16 08:37 4 TAB Miscellaneous (Iv Fluids Completed) 1 ea PRN PRN N/A 10/25/16 04:45 10/25/17 04:44 Levothyroxine Sodium/ Levothyroxine Sodium (Synthroid Tab/ Synthroid Tab) 225 mcg DAILYBB PO 10/25/16 06:30 11/24/16 06:29 10/26/16 06:16 225 MCG Nicotine (Nicoderm Cq 14MG Patch) 1 patch QAM TD 10/26/16 09:00 11/25/16 08:59 Miscellaneous (Remove Nicoderm Patch) 1 ea HS N/A 10/25/16 21:00 11/24/16 20:59 10/25/16 23:50 1 EA Description This is a 21 electrode EEG with a single channel dedicated to limited EKG. The electrodes were placed in accordance with the International 10-20 system. Intermittent movement artifact, IV artifact, and F3 electrode artifact noted. At the start of the recording the patient was in an awake state. Background was well organized and composed of symmetric mixed alpha and beta frequencies. There was a symmetric well-formed moderate amplitude 11-12 Hz posterior dominant rhythm that was reactive to eye opening and closure. Hyperventilation was not done. Intermittent photic stimulation at various frequencies produced no abnormalities. Drowsiness was indicated by slowing of the background rhythm and loss of muscle artifact. There was no sleep transients. Interpretation This is a normal awake and drowsy routine EEG. There was no electrographic seizures or epileptiform discharges. Clinical Correlation A normal EEG does not rule out epilepsy if there is a strong clinical suspicion.
[2016-10-26] MEDS: CHOLESTYRAMINE LIGHT 4 GM PKT PO SCH (10:02)
--- NOTE | 2016-10-26 11:55 | Progress Note ---
Progress Note Date of Service Oct 26, 2016. Progress Note ID Consult Dictated #[id number] A/P: 1. Leukocytosis - ? post ictal, no infection identified -No indication to continue abx for Lyme, she can follow with her Lyme doctor as outpt but no literature recs for prolonged abx -No indication for plaquenil, can stop from ID standpoint -Discussed at length with pt and her recs to follow off of abx -thank you
--- NOTE | 2016-10-26 13:23 | INFECT. DISEASE CONSULTATION ---
DATE OF CONSULTATION: 10/26/2016 REQUESTING PHYSICIAN: Dr. Weiner. HISTORY OF PRESENT ILLNESS: This is a 41-year-old female who was admitted after she had a sudden episode of altered mental status yesterday. Her is present with her and he provides history regarding this. He states that she had an episode earlier in the week where she felt numbness across the right side of her forehead but this resolved spontaneously. She then had an episode on the day of admission where she had a "blank stare" and was unable to communicate with him. This lasted briefly and resolved spontaneously. He states she had a similar episode in 12/2015. She was admitted to the hospital at that time. She did have negative blood cultures and a negative CSF culture. Her LP had 0 WBCs and a normal protein and glucose. She was evaluated for Lyme disease at that time. She did have a positive IgG but a negative IgM. She was discharged on 14 days of oral doxycycline. She states since her discharge from the hospital, she has been following with a Lyme specialist in [place], [place], and he has placed her on a long-term course of Biaxin. It appears that she has been on Biaxin since December of last year. She has had significant diarrhea associated with this. She has had multiple studies for C. diff which have been negative. She also had workup done by her Lyme specialist for celiac disease and states that she had gluten sensitivity. She then followed up with her primary care physician and had additional celiac testing and this was negative. She was also seen by GI and had a colonoscopy which did not show any evidence of pseudomembranous colitis but microcolitis. She was continued to be followed by her primary care physician and it was felt that her constant diarrhea was related to her macrolide antibiotic. This was tapered off in the past few weeks and her diarrhea has resolved completely. She feels that she has tapered off her antibiotics too soon and that was the reason for the episode she had the other night. She has had no additional episodes since she has been hospitalized. She has been afebrile since admission. She does have a leukocytosis of 13.5. She was placed on Rocephin in the Emergency Room. She was also placed on Plaquenil for chronic Lyme disease. Infectious diseases was consulted for additional guidance regarding this. In the past, she has had a negative MIGUELITO, a negative ANCA, and a negative rheumatoid factor. She did have a CT of the head yesterday and it was negative. The Lyme screen was negative. Urinalysis was negative. On exam today, she denies any headache. She denies any numbness or tingling. She denies any visual changes. She denies any neck stiffness. She denies any fevers or chills. She has no chest pain, cough, shortness of breath, nausea or vomiting. Her diarrhea has resolved. Her appetite is stable. All remaining review of systems are reviewed and are negative. She denies any tick bites or rashes. She has had no travel anywhere. She states she is collecting her records and will be following up with a second Lyme specialist in the [place] area but has not yet made an appointment with this individual. PAST MEDICAL HISTORY: Significant for dysfunctional uterine bleeding, hypothyroidism, peptic ulcer disease, and TMJ joint pain dysfunction syndrome. SURGICAL HISTORY: Significant for hysterectomy. FAMILY HISTORY: Noncontributory. SOCIAL HISTORY: Positive for daily tobacco use. She denies any alcohol or drug use. She lives with her . ALLERGIES: SHE HAS ALLERGIES TO AMOXICILLIN, MORPHINE, PROMETHAZINE, AND HYDROMORPHONE. ADDITIONALLY, SHE HAS BEEN TAKEN OFF ANY SSRI DRUGS SECONDARY TO A POTENTIAL DRUG-DRUG INTERACTION OF QT PROLONGATION WITH MACROLIDE ANTIBIOTICS. CURRENT MEDICATIONS: Include nicotine patch, calcium with vitamin D, cholestyramine, Topamax, vitamin B, Plaquenil, Floranex, Synthroid, ceftriaxone, potassium, Tylenol and Zofran. PHYSICAL EXAMINATION: VITAL SIGNS: She is afebrile, pulse 67, respiratory rate 18, blood pressure is 121/77, oxygen saturation is 97-99% on room air. GENERAL: She is awake, alert and oriented x3. She is in no acute distress. HEENT: Mucous membranes are moist. Extraocular muscles are intact. There is no nuchal rigidity. She is able to move all extremities on her own. HEART: Regular. LUNGS: Clear. ABDOMEN: Soft, nontender, nondistended. There is no edema bilaterally. SKIN: Without rash. LABORATORY STUDIES: WBC today is 13.5, hemoglobin 13.9, hematocrit 41.6, platelets are 227. Chemistry panel reveals a sodium of 143, potassium 3.9, chloride 110, bicarbonate 23, BUN 15, creatinine 0.8, glucose is 115. LFTs are within normal limits. Urinalysis is unremarkable. Lyme disease screen is negative. Blood cultures are no growth to date x2 sets. A chest x-ray done in the Emergency Room showed no acute findings. CT of the head in the Emergency Room was negative. Again, LP in 12/2015 was negative, it did not show any evidence of encephalitis and/or meningitis. She did have a brain MRI on 12/02 which showed increased T2 signal on the right mastoid, likely inflammatory. Brain MRI was unremarkable. She did have an EEG today and this was normal. She does state she was seen by neurology today and has an outpatient appointment scheduled. She is also seen by psychiatry. ASSESSMENT AND PLAN: Leukocytosis, unclear etiology; however, I do not feel that her episode is secondary to infectious etiology. A normal EEG does not rule out epilepsy and certainly it does appear that she may have had a seizure-like activity which would be a cause for a postictal leukocytosis. Her blood cultures are negative, she is afebrile. With regard to her Lyme disease, she has been effectively treated from an infectious diseases standpoint with a 14-day course of doxycycline in 12/2015. There is no evidence to support prolonged antibiotics and certainly I do believe her diarrhea is related to Biaxin therapy. There were also drug-drug interactions with her previous antidepressants and this may be contributing to her overall clinical picture. I have recommended that she remain off antibiotics. Her Rocephin can be discontinued. With regard to Plaquenil, I do not know of any current medical literature to suggest Plaquenil for treatment of Lyme disease and I would highly suggest discontinuation of this as well. We will be available for questions if needed. Thank you for this consultation.
[2016-10-26] MEDS ORDERED: QSTP PO (14:03)
--- NOTE | 2016-10-26 14:10 | Discharge Instructions ---
Discharge Instructions Date of Service Oct 26, 2016. Admission Reason for Admission: Altered Mental Status Discharge Discharge Diagnosis / Problem: Altered Mental Status Discharge Goals Goal(s): Decrease discomfort, Diagnostic testing, Therapeutic intervention Activity Recommendations Activity Limitations: resume your previous activity . Instructions / Follow-Up Instructions / Follow-Up New medication: 1. Questran packet, 4 gm twice per day This medication has been prescribed for a trial to help with chronic diarrhea. Please follow-up with PCP about effectiveness/need to continue Prescription has been sent to your pharmacy It is recommended you discuss with your PCP about your Metformin medication and other options available, as Metformin can increase diarrhea Infectious Disease does NOT recommend you be on antibiotics at this time. Psychiatry believes Wellbutrin would be an appropriate choice of agent if desired for ongoing maintenance prescription, particularly if desired to cut back on smoking. Please follow-up with your PCP to further discuss this. Resume all other regular home medications as prescribed Please follow-up with your PCP within 5-7 days Please follow-up/keep all of your subspecialty appointments Current Hospital Diet Patient's current hospital diet: Regular Diet Discharge Diet Recommended Diet: Regular Diet Procedures Procedures Performed: 1. Head CT 2. CXR 3. EEG Pending Studies Studies pending at discharge: no Laboratory Results Results Past 24 Hours Test 10/26/16 06:05 Range/Units White Blood Count 13.55 4.8-10.8 K/uL Red Blood Count 4.64 4.2-5.4 M/uL Hemoglobin 13.9 12.0-16.0 g/dL Hematocrit 41.6 37-47 % Mean Corpuscular Volume 89.7 80-100 fL Mean Corpuscular Hemoglobin 30.0 25-34 pg Mean Corpuscular Hemoglobin Concent 33.4 32-36 g/dl Platelet Count 227 130-400 K/uL Mean Platelet Volume 11.6 7.4-10.4 fL Neutrophils (%) (Auto) 57.3 % Lymphocytes (%) (Auto) 34.2 % Monocytes (%) (Auto) 6.7 % Eosinophils (%) (Auto) 1.1 % Basophils (%) (Auto) 0.3 % Neutrophils # (Auto) 7.77 1.4-6.5 K/uL Lymphocytes # (Auto) 4.63 1.2-3.4 K/uL Monocytes # (Auto) 0.91 0.11-0.59 K/uL Eosinophils # (Auto) 0.15 0-0.5 K/uL Basophils # (Auto) 0.04 0-0.2 K/uL RDW Standard Deviation 43.3 36.4-46.3 fL RDW Coefficient of Variation 13.1 11.5-14.5 % Immature Granulocyte % (Auto) 0.4 % Immature Granulocyte # (Auto) 0.05 0.00-0.02 K/uL Sodium Level 143 136-145 mmol/L Potassium Level 3.9 3.5-5.1 mmol/L Chloride Level 110 98-107 mmol/L Carbon Dioxide Level 23 21-32 mmol/L Anion Gap 10.0 3-11 mmol/L Blood Urea Nitrogen 15 7-18 mg/dl Creatinine 0.87 0.60-1.20 mg/dl Est Creatinine Clear Calc Drug Dose 108.5 ml/min Estimated GFR () 97.3 Estimated GFR (Non- 83.9 BUN/Creatinine Ratio 16.7 10-20 Random Glucose 115 70-99 mg/dl Calcium Level 8.9 8.5-10.1 mg/dl Magnesium Level 2.0 1.8-2.4 mg/dl Medical Emergencies . Who to Call and When: Medical Emergencies: If at any time you feel your situation is an emergency, please call 911 immediately. . Non-Emergent Contact Non-Emergency issues call your: Primary Care Provider . . "Provider Documentation" section prepared by Mikaela Stoll. VTE Core Measure Inpt VTE Proph given/why not?: SCD's
--- NOTE | 2016-10-26 14:11 | Discharge Summary ---
Discharge Summary Date of Service Oct 26, 2016. Discharge Summary Admission Date: Oct 25, 2016 at 03:59 Discharge Date: Oct 26, 2016 Discharge Disposition: Home Principal Diagnosis: AMS Problems/Secondary Diagnoses: 1. 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 Microcytic colitis 3. Hypothyroidism 4. T2DM Immunizations: Have You Had Influenza Vaccine: No History of Tetanus Vaccine?: No History of Pneumococcal: No History of Hepatitis B Vaccine: No Procedures: CT OF THE HEAD WITHOUT CONTRAST CLINICAL HISTORY: Confusion. Lyme disease. COMPARISON STUDY: Head CT December 03, 2015 and MRI of the brain December 03, 2015. CT DOSE: 537.48 mGy.cm TECHNIQUE: Helical axial images of the head were obtained without IV contrast. Automated exposure control was utilized for the study. FINDINGS: No acute intracranial hemorrhage, midline shift or mass effect is present. Ventricular system is normal. Basilar cisterns are patent. There are no extra-axial collections. Salgado-white differentiation is maintained. There are no findings to suggest acute dural sinus thrombosis or acute territorial infarct. There is no calvarial fracture. Visualized portions of the sinuses and mastoid air cells are clear. IMPRESSION: No acute intracranial findings. Electronically signed by: Rubén Lemus M.D. 10/25/2016 8:32 AM Dictated Date/Time: 10/25/2016 8:31 AM The status of this report is Signed. Draft = Not yet reviewed or approved by Radiologist. Signed = Reviewed and approved by Radiologist. CHEST ONE VIEW PORTABLE CLINICAL HISTORY: Sepsis COMPARISON STUDY: Chest radiograph January 09, 2016. FINDINGS: This exam is compromised by suboptimal penetration. No pneumothorax or pleural effusion is present. There is no lobar consolidation. There is no evidence of pulmonary edema. Cardiomediastinal silhouette is stable. IMPRESSION: No acute cardiopulmonary findings. Electronically signed by: Rubén Lemus M.D. 10/25/2016 8:33 AM Dictated Date/Time: 10/25/2016 8:33 AM The status of this report is Signed. Draft = Not yet reviewed or approved by Radiologist. Signed = Reviewed and approved by Radiologist. EEG: Description This is a 21 electrode EEG with a single channel dedicated to limited EKG. The electrodes were placed in accordance with the International 10-20 system. Intermittent movement artifact, IV artifact, and F3 electrode artifact noted. At the start of the recording the patient was in an awake state. Background was well organized and composed of symmetric mixed alpha and beta frequencies. There was a symmetric well-formed moderate amplitude 11-12 Hz posterior dominant rhythm that was reactive to eye opening and closure. Hyperventilation was not done. Intermittent photic stimulation at various frequencies produced no abnormalities. Drowsiness was indicated by slowing of the background rhythm and loss of muscle artifact. There was no sleep transients. Interpretation This is a normal awake and drowsy routine EEG. There was no electrographic seizures or epileptiform discharges. Clinical Correlation A normal EEG does not rule out epilepsy if there is a strong clinical suspicion. Consultations: ID- Dr. Arguello Psychiatry- Dr. Parry Medication Reconciliation New Medications: Cholestyramine (Cholestyramine Light) 4 Gm Pack 4 GM PO BID@10,22 for 30 Days, #60 PKT Continued Medications: B-Complex Vitamins (Vitamin B Complex) 1 Tab Tab 1 TAB PO QPM Calcium Citrate-Vitamin D (Calcitrate) 1 Tab Tab 1 TAB PO HS Cholecalciferol (Vitamin D3) 10,000 Unit Cap 1 CAP PO HS Levothyroxine Sodium (Synthroid) 25 Mcg Tab 25 MCG PO DAILY Levothyroxine Sodium (Synthroid) 200 Mcg Tab 200 MCG PO QAM, TAB Metformin Hcl Er (Glucophage Er) 500 Mg Tab 1000 MG PO BID Topiramate (Topamax) 50 Mg Tab 50 MG PO BID Referrals At Discharge Follow up Referrals: Family Practice Referral - Within 1 Week with Alin Sprague M.D. Discharge Exam Review of Systems: Constitutional: No chills, No fatigue, No fever, No sweats, No weakness Respiratory: No cough, No hemoptysis, No shortness of breath Cardiovascular: No chest pain, No edema, No palpitations Abdomen: No constipation, No diarrhea, No nausea, No pain, No vomiting Musculoskeletal: No calf pain, No joint pain, No muscle pain, No swelling Genitourinary - Female: No dysuria, No hematuria Neurologic: No numbness/tingling, No weakness Psychiatric: No anxiety, No depression symptoms Endocrine: No fatigue Hematologic / Lymphatic: No abnormal bleeding/bruising Integumentary: No itch, No new/changing skin lesions, No rash Physical Exam: General Appearance: no apparent distress, + obese Eyes: normal inspection, PERRL ENT: hearing grossly normal Neck: supple Respiratory/Chest: lungs clear, no respiratory distress, no accessory muscle use Cardiovascular: regular rate, rhythm Abdomen / GI: normal bowel sounds, non tender, soft Extremities: no calf tenderness, no pedal edema Neurologic/Psychiatric: alert, normal mood/affect, oriented x 3 Skin: normal color, warm/dry, no rash Hospital Course HPI at admission: The patient is a 41-year-old female who presents to the emergency department with the sudden onset of altered mental status began to spread arrival. Her reports that she seemed to be weak earlier in the evening and then she suddenly became altered in a similar presentation to 2015 when she was diagnosed with Lyme disease encephalopathy. He reports that she had been on antibiotics for long interval time, and she was tapered off antibiotics beginning 3 weeks ago and is now on none. She's had no recent travel, no sick exposures. They continue to live in the same area where there are a number of ticks, but she has not had any overt tick bites. 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 Head CT- no acute intracranial findings 2. CXR- no acute process 3. EEG- no seizure activity - Lyme antibody tests are negative today - BCx- NGTD - Continue Topiramate 50 mg PO BID - Hydroxychloroquine 200 mg PO BID started on 10/25, by admitting doctor, to deal with postinflammatory Lyme state - ID consulted, appreciate recommendations -- Recommend discontinuing Plaquenil, as medical literature available to prove efficiency w/ treating Lyme disease -- No antibiotics indicated at this time - Psychiatry consult, appreciate recommendations -- Per Dr. Parry- "there is no indication for acute inpatient hospitalization. The family is already engaged with behavioral therapy for her daughter. There is no acute indication to resume SSRI, reviewed that Lexapro and Celexa have some QTc warnings with various antibiotics but often not clinically significant in patients without hx of Qtc issues, significant polypharm, non geriatric population. Agree that Wellbutrin would be an appropriate choice of agent if desires ongoing maintenance rx, particularly if desires to cut back on smoking. She denies a history of seizure or ED. Would advise lower end starting dose (possibly 100 mg SR) given recent AMS due to risks of BHATT and dizziness. Dose could be adjusted up based on tolerability by PCP." --> Will not start prior to discharge, and will allow PCP to further discuss this treatment option w/ patient at f/u appointment Microcytic colitis--her antibodies have been tapered recently due to the persistence of diarrhea, with colonoscopy revealing this diagnosis: - Trial of cholestyramine 4 g twice a day and increase probiotics - Reducing her metformin may be a good choice to help minimize issues with loose stools--> resume at discharge, can discuss this option further w/ PCP at f /u appointment Hypothyroidism: Continue Levothyroxine sodium at 225 g PO daily T2DM: She has tapered her Metformin to 500 mg PO daily GI Prophylaxis: Maalox PRN, IV Zofran PRN, Colace and/or Milk of Mag PRN Code Status: LEVEL I, FULL Dispo: Discharge to home Total Time Spent: Greater than 30 minutes This includes examination of the patient, discharge planning, medication reconciliation, and communication with other providers. Discharge Instructions Please refer to the electronic Patient Visit Report (Discharge Instructions) for additional information. Follow-Up Please follow-up with your PCP within 5-7 days Please follow-up/keep all of your subspecialty appointments Additional Copies To Alin Sprague M.D.
== END 2016-10-26 17:00 | disposition home or self-care (01) | DRG 948 ==
LOC: ENRESERVDT → ENRESERVTM → C.EDB 01:35 → C.MED 03:59 → EDBEDREQ 04:09
PROVIDERS: ADMIT Hospitalist; ATTEND Hospitalist
DX: R41.82 Altered mental status, unspecified (principal); K52.9 Noninfective gastroenteritis and colitis, unspecified; E03.9 Hypothyroidism, unspecified; F17.210 Nicotine dependence, cigarettes, uncomplicated; D72.829 Elevated white blood cell count, unspecified; Z86.61 Personal history of infections of the central nervous system; E11.9 Type 2 diabetes mellitus without complications; Z87.11 Personal history of peptic ulcer disease; Z79.899 Other long term (current) drug therapy; Z79.84 Long term (current) use of oral hypoglycemic drugs

== ENCOUNTER → 2016-10-27 | Outpatient (CLI) | payer BC ==
[~2016-10-27] MED LIST changes: +BUPR-79 PO; -BXN500 PO; -CEFD1CAP14 PO; +FRCT/ PO; -MISCCAP80 PO; +QSTP PO
--- NOTE | 2016-10-27 12:18 | DIAGNOSTIC IMAGING REPORT ---
ABDOMEN COMPLETE (US) CLINICAL HISTORY: Generalized abdominal pain COMPARISON STUDY: 11/28/2010, CT scan dated 01/06/2016 FINDINGS: No focal hepatic masses are visualized. There is suboptimal visualization the pancreas. The gallbladder is surgically absent. There is no ductal dilatation. The common bile duct measures 4 mm. The spleen measures 12 cm in length. No splenic masses are visualized. The right kidney measures 11.4 cm in length. The left kidney measures 11.5 cm in length. No renal masses are visualized. There is no hydronephrosis. The abdominal aorta was not visualized. The IVC appear normal as visualized. The examination was difficult secondary to the patient's body habitus. IMPRESSION: 1. Nondiagnostic evaluation of the pancreas 2. Surgically absent gallbladder 3. No hepatic splenic or renal masses identified 4. No ductal dilatation Electronically signed by: Tan Singletary M.D. 10/27/2016 12:16 PM Dictated Date/Time: 10/27/2016 12:14 PM
--- NOTE | 2016-10-27 12:21 | DIAGNOSTIC IMAGING REPORT ---
EXAMINATION: PELVIC ULTRASOUND CLINICAL HISTORY: R10.9 Abdominal [id number] PAIN. NAUSEA. COMPARISON STUDY: None FINDINGS: The uterus measured surgically removed. The right ovary measured 5.0 x 5.7 cm. This complains a complex partial fluid containing structure measuring 4.4 cm. Possibly of a hemorrhagic cyst is considered.. The left ovary measured 2.9 cm normal vascular flow. There is no ultrasonographic evidence of ovarian torsion. It should be noted that ovarian torsion can be present with normal Doppler ultrasonographic findings. There was no evidence of pathologic free pelvic fluid. IMPRESSION: 1. Status post partial hysterectomy. 2. 4.4 cm complex partially cystic lesion of the right ovary. This potentially represents a hemorrhagic cyst, with other possible but less likely lesions possible. 3. A follow-up ultrasound in one to 2 weeks is suggested as follow-up. Electronically signed by: Duke Walls M.D. 10/27/2016 12:20 PM Dictated Date/Time: 10/27/2016 12:17 PM
--- NOTE | 2016-10-28 09:54 | DIAGNOSTIC IMAGING REPORT ---
EXAMINATION: PELVIC ULTRASOUND CLINICAL HISTORY: R10.9 Abdominal [id number] PAIN. NAUSEA. COMPARISON STUDY: None FINDINGS: The uterus measured surgically removed. The right ovary measured 5.0 x 5.7 cm. This complains a complex partial fluid containing structure measuring 4.4 cm. Possibly of a hemorrhagic cyst is considered.. The left ovary measured 2.9 cm normal vascular flow. There is no ultrasonographic evidence of ovarian torsion. It should be noted that ovarian torsion can be present with normal Doppler ultrasonographic findings. There was no evidence of pathologic free pelvic fluid. IMPRESSION: 1. Status post partial hysterectomy. 2. 4.4 cm complex partially cystic lesion of the right ovary. This potentially represents a hemorrhagic cyst, with other possible but less likely lesions possible. 3. A follow-up ultrasound in one to 2 weeks is suggested as follow-up. Electronically signed by: Duke Walls M.D. 10/27/2016 12:20 PM Dictated Date/Time: 10/27/2016 12:17 PM
== END | disposition home or self-care (01) ==
LOC: C.ULTRBC 10:23
PROVIDERS: ATTEND Internal Medicine
DX: R10.9 Unspecified abdominal pain (principal); N83.9 Noninflammatory disorder of ovary, fallopian tube and broad ligament, unspecified

== ENCOUNTER → 2016-12-07 | Outpatient (CLI) | payer BC ==
[~2016-12-07] MED LIST changes: +CYM/30 PO; +METH500T37 PO; +PROC1TAB5 PO; +RIBO100T2; +TOPI1CAP12
== END | disposition home or self-care (01) ==
LOC: C.RC 18:23
PROVIDERS: ATTEND Internal Medicine Pulmonary Disease
DX: R06.02 Shortness of breath (principal)

== ENCOUNTER → 2016-12-08 | Outpatient (CLI) | payer BC ==
--- NOTE | 2016-12-11 09:48 | POLYSOMNOGRAPH REPORT ---
REFERRING DOCTOR: Dr. Alin Sprague. CLINICAL DATA: The patient is a 41-year-old female with a BMI of 39.33. She has complaints of snoring, insomnia and excessive daytime somnolence. She also has shortness of breath. A sleep study was done several years ago and she had no significant sleep apnea with an apnea hypopnea index of 2.9. She has gained 60 pounds since that time. This study was a home sleep apnea test performed using the [employer] type 3 monitor. RECORDING RESULTS: Total recording time was 9.3 hours. The patient's estimated sleep time was 6.2 hours. RESPIRATORY DATA: There was no clinically significant sleep apnea seen. The MARISOL was 1.5. There were 9 hypopneas seen. The longest event was 26 seconds. OXIMETRY DATA: The mean saturation for the night was 93%. The minimum saturation was 85%. There was only 1 minute with saturations less than 89%. HEART RATE: The lowest heart rate was 58. The mean heart rate was 71 beats per minute. SNORING DATA: Snoring was present throughout most of the test. IMPRESSIONS: 1. Primary snoring. 2. No evidence of significant sleep apnea. RECOMMENDATIONS: 1. The patient has an elevated body mass index of 39.33. A weight reduction program is advised. 2. The patient should have a regular sleep-wake schedule and should have allowed herself approximately 7.5 hours of sleep time per night. [facility]
== END | disposition home or self-care (01) ==
LOC: C.NEUR 10:18
PROVIDERS: ATTEND Internal Medicine Pulmonary Disease
DX: G47.33 Obstructive sleep apnea (adult) (pediatric) (principal); R06.83 Snoring

== ENCOUNTER → 2017-01-29 | Outpatient (CLI) | payer BC ==
[~2017-01-29] MED LIST changes: -CYM/30 PO; -METH500T37 PO; -PROC1TAB5 PO; -RIBO100T2; -TOPI1CAP12
== END | disposition home or self-care (01) ==
LOC: C.PAPS 15:52
PROVIDERS: ATTEND Obstetrics & Gynecology
DX: Z01.419 Encounter for gynecological examination (general) (routine) without abnormal findings (principal)

== ENCOUNTER 2017-01-30 10:55 | Emergency (ER) | payer BC ==
[~2017-01-30] VITALS: Ht 165.1 cm; Wt 108.2 kg
[~2017-01-30 10:55] MED LIST changes: -BUPR-79 PO; -FRCT/ PO
[2017-01-30 11:05] VITALS: TEMP 36.7; Ht 165.1 cm; Wt 108.2 kg
[2017-01-30] MEDS ORDERED: BUPR-79 PO (11:42)
[2017-01-30] MEDS ORDERED: SODIUM CHLORIDE 0.9% 1000ML 1,000 ML IV STA (11:42)
[2017-01-30] MEDS ORDERED: ONDANSETRON INJ 2 MG/ML 2 ML VIAL IV STA (11:42)
[2017-01-30] MEDS ORDERED: FRCT/ PO (11:44)
[2017-01-30 11:51] LABS: BASO % 0.4 %; BASO ABS # 0.04 K/uL (0-0.2); COMPLETE YES; EOS % 1.5 %; IG% 0.3 %; LYMPH % 31.2 %; LYMPH ABS # 3.12 K/uL (1.2-3.4); MEAN CELL VOLUME 90.2 fL (80-100); MEAN CORPUSCULAR HEMOGLOBIN 30.1 pg (25-34); MEAN CORPUSCULAR HGB CONC 33.3 g/dl (32-36); MEAN PLATELET VOLUME 12.8 fL (7.4-10.4); MONO % 5.8 %; NEUT % 60.8 %; PLATELET COUNT 243 K/uL (130-400); RED BLOOD COUNT 4.99 M/uL (4.2-5.4)
[2017-01-30] MEDS ORDERED: OPTIRAY 320 IV PRN (12:00)
[2017-01-30] MEDS: FENTANYL CITRATE INJ 50 MCG/1 ML 2 ML VIAL IV PRN ×2 (12:16→15:33)
[2017-01-30 12:44] LABS: MANUAL MICROSCOPIC REQUIRED? NO; REVIEW REQ? NO; URINE APPEARANCE CLEAR (CLEAR); URINE BILIRUBIN NEG (NEG); URINE COLOR YELLOW; URINE NITRITE NEG (NEG); UROBILINOGEN NEG (NEG)
[2017-01-30 13:21] LABS: PARTIAL THROMBOPLASTIN RATIO 1.1; PROTHROMBIN TIME (PATIENT) 10.3 SECONDS (9.0-12.0)
[2017-01-30 13:25] LABS: ALT/SGPT 22 U/L (12-78); BLOOD UREA NITROGEN 9 mg/dl (7-18); BUN/CREATININE RATIO 11.7 (10-20); CALCIUM 8.7 mg/dl (8.5-10.1); CARBON DIOXIDE 23 mmol/L (21-32); CHLORIDE 113 mmol/L (98-107); CREATININE 0.77 mg/dl (0.60-1.20); GLUCOSE 100 mg/dl (70-99); POTASSIUM 3.8 mmol/L (3.5-5.1); SODIUM 142 mmol/L (136-145)
[2017-01-30 13:28] LABS: ALKALINE PHOSPHATASE 83 U/L (45-117); AST/SGOT 9 U/L (15-37)
--- NOTE | 2017-01-30 14:45 | DIAGNOSTIC IMAGING REPORT ---
CT OF THE ABDOMEN AND PELVIS WITH CONTRAST CLINICAL HISTORY: Abdominal pain. COMPARISON STUDY: CT of the abdomen and pelvis January 06, 2016 and pelvic and abdominal ultrasound October 19, 2016. TECHNIQUE: Following IV administration of 93 mL of Optiray-320, axial images of the abdomen and pelvis were obtained from the lung bases to the proximal femurs. Images were reviewed in the axial, sagittal, and coronal planes. IV contrast was administered without complication. Oral contrast was administered. CT DOSE: 1344.11 mGy.cm FINDINGS: Visualized portions of the lower lungs demonstrate numerous small calcified granulomas. The liver, spleen, adrenal glands, kidneys and pancreas are normal. There is no biliary ductal dilatation status post cholecystectomy. There is no evidence for a bowel obstruction. The appendix is normal. There is no ascites. By report, the patient is status post hysterectomy. A lobulated pelvic mass like abnormality is noted. No normal-appearing ovaries are identified on this examination. The appearance is similar to earlier exams dating back to July 08, 2011 but are suboptimally assessed by CT. No suspicious skeletal lesions are identified. There is no lymphadenopathy. There is no bowel wall thickening. No biliary ductal dilatation is identified status post cholecystectomy. IMPRESSION: 1. No acute process within the abdomen or pelvis. 2. No change in appearance of the pelvis since prior exam. By report, the patient is status post hysterectomy. No change in a bilobed mass-like abnormality either arising from the cervix or ovaries since earlier pelvic ultrasound. The findings are nonspecific and suboptimally assessed by CT but are unchanged and could be correlated with surgical history. Electronically signed by: Rubén Lemus M.D. 01/30/2017 2:43 PM Dictated Date/Time: 01/30/2017 2:32 PM
[2017-01-30] MEDS ORDERED: FENTANYL CITRATE INJ 50 MCG/1 ML 2 ML VIAL IV ONE ×2 (15:30→16:00)
--- NOTE | 2017-01-30 17:23 | DIAGNOSTIC IMAGING REPORT ---
PELVIC ULTRASOUND CLINICAL HISTORY: Lower abdominal pain. Previous hysterectomy. COMPARISON STUDY: Pelvic ultrasound October 19, 2016. TECHNIQUE: Transabdominal and transvaginal sonography of the pelvis was performed. FINDINGS: The sonographic findings suggest a supracervical hysterectomy. A few nabothian cysts are noted. The right ovary measures 4.5 x 3.4 x 3.8 cm and the left measures 3.6 x 2.3 x 3.3 cm. There is a 2.7 cm right ovarian cyst. Color flow is identified within each ovary. There was no free fluid. IMPRESSION: 1. No sonographic evidence of ovarian torsion. 2. Findings suggestive of a supracervical hysterectomy. 3. No free fluid. 4. 2.7 cm right ovarian cyst. Electronically signed by: Rubén Lemus M.D. 01/30/2017 5:21 PM Dictated Date/Time: 01/30/2017 5:19 PM
[2017-01-30 17:46] VITALS: BP 118/67; PULSE 66; O2SAT 100
--- NOTE | 2017-01-30 19:29 | EMERGENCY ROOM VISIT NOTE ---
ED Visit Note First contact with patient: 11:10 Chief Complaint: Crampy in my lower abdomen. History of Present Illness: Ms. Kilgore is a 42 year-old white female complaining of bilateral lower quadrant abdominal pain. 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 Patient reports a gradual onset of bilateral lower quadrant abdominal pain that started 12 approximately hours ago. She reports yesterday she had a Pap smear. Then last night approximately 10 PM she was feeling her abdomen and noticed dried blood in her umbilicus. She reports she removed the blood but then there was a small amount of seepage in the umbilicus. Approximately one hour later she started developing bilateral lower quadrant abdominal cramping. Since that time her pain has been constant although it has waxed and waned in intensity; she describes it as coming in waves. She feels the prominence of her discomfort is right sided. She rates her discomfort 8/10 at its worse. Her pain is nonradiating. She has not identified any aggravating or alleviating factors related to the pain. She has not taken any medications for her discomfort prior to arrival at the hospital. Associated with her pain she reports she is mildly nauseated but has not vomited and this morning when she had a bowel movement she noted dark red blood in her stools. Patient denies fevers, chills, sweats, skin eruptions, skin color changes, lightheadedness, dizziness, upper respiratory tract symptoms, shortness of breath, chest pain, diarrhea, constipation, black/tarry stools, urinary symptoms , hematuria, vaginal bleeding, vaginal discharge, back/flank pain, easy bruising , easy bleeding. Review of Systems: As noted above in history of present illness. All body systems were reviewed and found to be negative as noted above. Past Medical History: As previously noted, diabetes, unspecified skin disorder, asthma, hypothyroidism. Current Medications: Medications Dose Route/Sig Max Daily Dose Days Date Category Fioricet (Acetaminophen/Butalbital/Caffeine) 1 Ea Tab 1 Tab PO PRN PRN 01/30/17 Reported Wellbutrin Sr (Bupropion HCl) 150 Mg Ertab 150 Mg PO BID 01/30/17 Reported Vitamin B Complex (B-Complex Vitamins) 1 Tab Tab 1 Tab PO QPM 08/31/16 Reported Synthroid (Levothyroxine Sodium) 200 Mcg Tab 200 Mcg PO QAM 08/31/16 Reported Synthroid (Levothyroxine Sodium) 25 Mcg Tab 25 Mcg PO DAILY 08/31/16 Reported Vitamin D3 (Cholecalciferol) 10,000 Unit Cap 1 Cap PO HS 08/31/16 Reported Calcitrate (Calcium Citrate-Vitamin D) 1 Tab Tab 1 Tab PO HS 05/17/16 Reported Topamax (Topiramate) 50 Mg Tab 100 Mg PO BID 05/17/16 Reported Glucophage Er (Metformin HCl) 500 Mg Tab 500 Mg PO DAILY 05/17/16 Reported Allergies to Medications: Augmentin, hydromorphone, morphine, promethazine. Social History: Patient is currently employed; she feels safe in her home environment; she admits to tobacco use. Physical Examination: Vital Signs: Date Time Temp Pulse Resp B/P (MAP) Pulse Ox O2 Delivery O2 Flow Rate FiO2 01/30/17 17:46 66 118/67 100 01/30/17 17:00 58 20 121/76 100 Room Air 01/30/17 15:00 54 17 114/76 99 Room Air 01/30/17 13:00 59 16 120/77 100 Room Air 01/30/17 12:20 83 01/30/17 11:05 36.7 78 18 157/98 99 Room Air GENERAL: 42-year-old female in mild to moderate distress due to pain, nontoxic- appearing, afebrile and hemodynamically stable. NEUROLOGICAL: Awake, alert and oriented to person, place and time. Answering questions appropriately and following commands. Normal gait. Good hand eye coordination. SKIN: Warm, dry and pink. No soft tissue eruptions or trauma noted. HEENT: Atraumatic and normocephalic. PERRLA. Sclera white and conjunctiva pink. Oral cavity moist and pink. Pharynx is nonerythematous or edematous. Speech normal. No lymphadenopathy. Trachea midline. No jugular venous distention. BACK: No tenderness over the bony spine. No CVA tenderness. THORAX: Lungs sounds are clear to auscultation and equal bilaterally with symmetrical chest wall. No wheezing, rales or rhonchi. No crepitus, tenderness , subcutaneous air or deformities noted. HEART: Regular rate and rhythm. No gallops, rubs or murmurs are appreciated. ABDOMEN: Flat, soft and nontender. Positive bowel sounds in all quadrants. No guarding, rigidity or organomegaly. RECTAL: Patient has a large external hemorrhoid at the 4 o'clock position with no active bleeding. Normal rectal tone. No palpable rectal masses. Heme- negative stools. EXTREMITIES: Moves all extremities well on command and with purpose. All distal neurovascular statuses are intact and equal bilaterally. ED Course: Patient is assessed as noted above. Patient's medication list was reviewed. Laboratory Testing: Test 01/30/17 11:35 01/30/17 11:50 01/30/17 12:44 Range/Units White Blood Count 10.00 4.8-10.8 K/uL Red Blood Count 4.99 4.2-5.4 M/uL Hemoglobin 15.0 12.0-16.0 g/dL Hematocrit 45.0 37-47 % Mean Corpuscular Volume 90.2 80-100 fL Mean Corpuscular Hemoglobin 30.1 25-34 pg Mean Corpuscular Hemoglobin Concent 33.3 32-36 g/dl Platelet Count 243 130-400 K/uL Mean Platelet Volume 12.8 7.4-10.4 fL Neutrophils (%) (Auto) 60.8 % Lymphocytes (%) (Auto) 31.2 % Monocytes (%) (Auto) 5.8 % Eosinophils (%) (Auto) 1.5 % Basophils (%) (Auto) 0.4 % Neutrophils # (Auto) 6.08 1.4-6.5 K/uL Lymphocytes # (Auto) 3.12 1.2-3.4 K/uL Monocytes # (Auto) 0.58 0.11-0.59 K/uL Eosinophils # (Auto) 0.15 0-0.5 K/uL Basophils # (Auto) 0.04 0-0.2 K/uL RDW Standard Deviation 43.1 36.4-46.3 fL RDW Coefficient of Variation 13.2 11.5-14.5 % Immature Granulocyte % (Auto) 0.3 % Immature Granulocyte # (Auto) 0.03 0.00-0.02 K/uL Urine Color YELLOW Urine Appearance CLEAR CLEAR Urine pH 8.0 4.5-7.5 Urine Specific [place] 1.010 1.000-1.030 Urine Protein NEG NEG Urine Glucose (UA) NEG NEG Urine Ketones NEG NEG Urine Occult Blood NEG NEG Urine Nitrite NEG NEG Urine Bilirubin NEG NEG Urine Urobilinogen NEG NEG Urine Leukocyte Esterase NEG NEG Prothrombin Time 10.3 9.0-12.0 SECONDS Prothromb Time International Ratio 1.0 0.9-1.1 Activated Partial Thromboplast Time 28.2 21.0-31.0 SECONDS Partial Thromboplastin Ratio 1.1 Sodium Level 142 136-145 mmol/L Potassium Level 3.8 3.5-5.1 mmol/L Chloride Level 113 98-107 mmol/L Carbon Dioxide Level 23 21-32 mmol/L Anion Gap 6.0 3-11 mmol/L Blood Urea Nitrogen 9 7-18 mg/dl Creatinine 0.77 0.60-1.20 mg/dl Est Creatinine Clear Calc Drug Dose 118.8 ml/min Estimated GFR () 111.9 Estimated GFR (Non- 96.6 BUN/Creatinine Ratio 11.7 10-20 Random Glucose 100 70-99 mg/dl Calcium Level 8.7 8.5-10.1 mg/dl Total Bilirubin 0.3 0.2-1 mg/dl Direct Bilirubin < 0.1 0-0.2 mg/dl Aspartate Amino Transf (AST/SGOT) 9 15-37 U/L Alanine Aminotransferase (ALT/SGPT) 22 12-78 U/L Alkaline Phosphatase 83 45-117 U/L Total Protein 6.6 6.4-8.2 gm/dl Albumin 3.2 3.4-5.0 gm/dl Lipase 85 73-393 U/L Contrast Abdominal/Pelvic CT: Was reviewed by myself and read by the radiologist showing no acute process in the abdomen or pelvis. Radiologist does report he compared this to previous and reports there is no change in a bilobed masslike arising from the cervix or ovaries from previous studies. Pelvic Ultrasound: Was reviewed by myself and read by the radiologist showing no evidence of ovarian torsion, no free fluid and 2.7 cm right ovarian cyst. Patient was hydrated with normal saline initially she received a total of 150 g of fentanyl IV and 4 mg of Zofran IV. Patient was reassessed multiple times during her stay in the emergency department. Patient's case was reviewed with Dr. Smith; we agreed on diagnostic approach, treatment, disposition and plan. Patient was educated about today's findings and instructed on her treatment plan ; she verbalized understanding and agreement with this plan. Clinical Impression: Bilateral lower abdominal pain. Decision-Making: Initially my differential diagnosis I considered ovarian torsion, ovarian cyst rupture, PID, appendicitis, and other causes. Disposition: Patient discharged home in stable condition accompanied by her ; prior to departure she was reassessed and subjectively reported she was feeling better and rated her discomfort 4/10. Plan: Patient was encouraged to continue her current medications; she does indicate that she is on narcotics for pain control for other causes. Patient was encouraged to alternate ibuprofen and acetaminophen as needed for pain. Patient was encouraged to stay well-hydrated. Patient was encouraged to follow-up with family physician for recheck. Patient was encouraged return the ED for worsening pain, fevers, worsening bloody stools or any new/concerning symptoms.
== END 2017-01-30 17:48 | disposition home or self-care (01) ==
LOC: C.EDB 10:56 → C.EDC 17:48
DX: R10.30 Lower abdominal pain, unspecified (principal); Z86.010 Personal history of colon polyps; Z90.710 Acquired absence of both cervix and uterus; Z90.49 Acquired absence of other specified parts of digestive tract; E11.9 Type 2 diabetes mellitus without complications; J45.909 Unspecified asthma, uncomplicated; E03.9 Hypothyroidism, unspecified; Z79.899 Other long term (current) drug therapy; F17.200 Nicotine dependence, unspecified, uncomplicated; K64.9 Unspecified hemorrhoids

== ENCOUNTER → 2017-05-25 | Outpatient (CLI) | payer BC ==
[~2017-05-25] MED LIST changes: +BUPR-79 PO; +FRCT/ PO; -QSTP PO
[2017-05-25 17:49] LABS: HEMATOCRIT 46.6 % (37-47); MEAN CELL VOLUME 91.4 fL (80-100); MEAN CORPUSCULAR HEMOGLOBIN 31.6 pg (25-34); MEAN CORPUSCULAR HGB CONC 34.5 g/dl (32-36); MEAN PLATELET VOLUME 12.7 fL (7.4-10.4); PLATELET COUNT 240 K/uL (130-400); WHITE BLOOD COUNT 8.61 K/uL (4.8-10.8)
[2017-05-25 18:38] LABS: ALT/SGPT 75 U/L (12-78); BLOOD UREA NITROGEN 14 mg/dl (7-18); BUN/CREATININE RATIO 19.5 (10-20); CALCIUM 9.2 mg/dl (8.5-10.1); CARBON DIOXIDE 24 mmol/L (21-32); CHLORIDE 109 mmol/L (98-107); CREATININE 0.69 mg/dl (0.60-1.20); GLUCOSE 81 mg/dl (70-99); POTASSIUM 4.3 mmol/L (3.5-5.1); SODIUM 139 mmol/L (136-145)
[2017-05-25 18:48] LABS: ALKALINE PHOSPHATASE 97 U/L (45-117); AST/SGOT 13 U/L (15-37); THYROID STIMULATING HORMONE 0.286 uIu/ml (0.300-4.500)
== END | disposition home or self-care (01) ==
LOC: C.LABPBG 11:48
PROVIDERS: ATTEND Internal Medicine
DX: G43.709 Chronic migraine without aura, not intractable, without status migrainosus (principal); E03.9 Hypothyroidism, unspecified

== ENCOUNTER → 2017-07-30 | Outpatient (CLI) | payer BC ==
[~2017-07-30] MED LIST changes: -BUPR-79 PO; +CYAN10005 PO; +CYM/30 PO; +METH-445 PO; +PREG1CAP28 PO; +PROC10TA PO; +RIBO100T2; +RIBO100T9 PO; +RIZA10TA19 PO; +TOPI1CAP12 PO; +TOPI200T14 PO
[2017-07-30 13:32] LABS: ALBUMIN 3.5 gm/dl (3.4-5.0); ALT/SGPT 19 U/L (12-78); BLOOD UREA NITROGEN 13 mg/dl (7-18); CALCIUM 8.8 mg/dl (8.5-10.1); CARBON DIOXIDE 21 mmol/L (21-32); CHOLESTEROL 136 mg/dl (0-200); CREATININE 0.71 mg/dl (0.60-1.20); GLUCOSE 89 mg/dl (70-99); POTASSIUM 3.8 mmol/L (3.5-5.1); SODIUM 141 mmol/L (136-145)
[2017-07-30 13:41] LABS: ALKALINE PHOSPHATASE 71 U/L (45-117); AST/SGOT 9 U/L (15-37); LDL CHOLESTEROL CALCULATED 84 mg/dl; TOTAL PROTEIN 6.8 gm/dl (6.4-8.2)
[2017-07-31 08:07] LABS: HEMOGLOBIN A1C 5.3 % (4.5-5.6)
== END | disposition home or self-care (01) ==
LOC: C.LABPBG 08:03
PROVIDERS: ATTEND Internal Medicine
DX: E03.9 Hypothyroidism, unspecified (principal); E55.9 Vitamin D deficiency, unspecified; R73.9 Hyperglycemia, unspecified; M79.1 Myalgia

== ENCOUNTER 2017-08-07 00:03 | Emergency (ER) | payer BC, OTHER ==
[~2017-08-07] VITALS: Ht 165.1 cm; Wt 102.6 kg
[~2017-08-07 00:03] MED LIST changes: -CYAN10005 PO; -METH-445 PO; +METH500T37 PO; -PREG1CAP28 PO; -PROC10TA PO; +PROC1TAB5 PO; -RIBO100T9 PO; -RIZA10TA19 PO; -TOPI200T14 PO
[2017-08-07 00:07] VITALS: TEMP 36.5
[2017-08-07 00:38] VITALS: Ht 165.1 cm; Wt 102.6 kg
[2017-08-07] MEDS ORDERED: METOCLOPRAMIDE HCL INJ 5 MG/ML 2 ML VIAL IV STA (00:40)
[2017-08-07] MEDS ORDERED: DiphenhydrAMINE HCL 50 MG/ML VIAL IV STA (00:40)
[2017-08-07] MEDS ORDERED: RIBO100T9 PO (00:49)
[2017-08-07] MEDS ORDERED: TOPI200T14 PO ×2 (00:52→02:24)
[2017-08-07] MEDS ORDERED: CYAN10005 PO (00:53)
[2017-08-07 01:05] LABS: BASO % 0.5 %; BASO ABS # 0.06 K/uL (0-0.2); EOS % 1.5 %; EOS ABS # 0.19 K/uL (0-0.5); HEMATOCRIT 45.3 % (37-47); HEMOGLOBIN 15.4 g/dL (12.0-16.0); IG# 0.03 K/uL (0.00-0.02); LYMPH % 34.3 %; LYMPH ABS # 4.49 K/uL (1.2-3.4); MEAN CELL VOLUME 92.4 fL (80-100); MEAN CORPUSCULAR HEMOGLOBIN 31.4 pg (25-34); MEAN PLATELET VOLUME 12.5 fL (7.4-10.4); MONO % 8.1 %; MONO ABS # 1.06 K/uL (0.11-0.59); NEUT % 55.4 %; NEUT ABS # 7.26 K/uL (1.4-6.5); PLATELET COUNT 219 K/uL (130-400); RED CELL DISTRIBUTION WIDTH CV 13.4 % (11.5-14.5); RED CELL DISTRIBUTION WIDTH SD 45.3 fL (36.4-46.3); WHITE BLOOD COUNT 13.09 K/uL (4.8-10.8)
[2017-08-07 01:05] LABS: INFLUENZA B ANTIGEN Neg for Influ B (NEG)
[2017-08-07 01:15] LABS: INR 0.9 (0.9-1.1); PTT PATIENT 27.4 SECONDS (21.0-31.0)
[2017-08-07 01:19] VITALS: O2SAT 96
[2017-08-07 01:24] LABS: ALBUMIN 3.6 gm/dl (3.4-5.0); ALT/SGPT 22 U/L (12-78); AST/SGOT 7 U/L (15-37); BLOOD UREA NITROGEN 14 mg/dl (7-18); CALCIUM 9.1 mg/dl (8.5-10.1); CARBON DIOXIDE 26 mmol/L (21-32); CREATININE 0.77 mg/dl (0.60-1.20); GLUCOSE 74 mg/dl (70-99); SODIUM 140 mmol/L (136-145)
[2017-08-07 01:35] LABS: ALKALINE PHOSPHATASE 84 U/L (45-117); TOTAL PROTEIN 7.2 gm/dl (6.4-8.2)
[2017-08-07 01:51] LABS: INFLUENZA A PCR Neg for Influ A (NEG); INFLUENZA B PCR Neg for Influ B (NEG)
[2017-08-07] MEDS ORDERED: RIZA10TA19 PO (02:27)
--- NOTE | 2017-08-07 03:00 | EMERGENCY ROOM VISIT NOTE ---
History First contact with patient: 00:12 Chief Complaint: NEURO SYMPTOMS Stated Complaint: HEAD/NECK PAIN,LEG AND ARM NUMBNESS Nursing Triage Summary: Pt complaining of headache with arms and legs being numb for 20 minutes at a time throughout the day, difficulty walking, legs are itching with ecchymotic areas on legs. History of Present Illness The patient is a 42 year old female who presents to the Emergency Room with complaints of increasing headaches with neck pain with extremity tingling and weakness today it is been intermittent for a while. Patient has a history of Lyme's encephalitis. She follows with Dr. Jackson. She is no longer on antibiotics. She sees pain clinic for her headache and neck pains. She's been getting nerve blocks. She had a cold over New Year's. Patient states the other day she's had tingling in her extremities that comes and goes lasting about 15-20 minutes several times through the day. She states for the past year and a half it has been intermittent but increasing in severity. Patient denies chest pain, dyspnea, abdominal pain, vomiting, diarrhea, localized weakness, dysarthria. She describes her headache as throbbing, ranging in severity 8 out of 10 throughout her head and neck unchanged. Nothing makes it better or worse. It was not sudden in onset. Review of Systems See HPI for pertinent positives & negatives. A total of 10 systems reviewed and were otherwise negative. Past Medical/Surgical History Medical Problems: (1) Altered mental status (2) Blurry vision (3) Dysfunctional uterine bleeding (4) Hypothyroidism (5) Peptic reflux disease (6) Supracervical hysterectomy (7) Temporomandibular [id number] syndrome (8) Weakness of both lower extremities Family History FH: lung disease FHx: cancer FHx: gallbladder disease Hypertension Social History Smoking Status: Current Every Day Smoker Alcohol Use: none Drug Use: none, other Marital Status: , in relationship Housing Status: lives with family, lives with significant other Current/Historical Medications Scheduled B-Complex Vitamins (Vitamin B Complex), 1 TAB PO QPM Calcium Citrate-Vitamin D (Calcitrate), 1 TAB PO HS Cholecalciferol (Vitamin D3), 10,000 UNITS PO HS Cyanocobalamin (Vitamin B-12), 1,000 MCG PO DAILY Duloxetine HCl (Cymbalta), 30 MG PO DAILY Levothyroxine Sodium (Synthroid), 25 MCG PO DAILY Levothyroxine Sodium (Synthroid), 200 MCG PO QAM Metformin Hcl Er (Glucophage Er), 500 MG PO DAILY Riboflavin (Vitamin B-2), 400 MG PO DAILY Rizatriptan Benzoate (Maxalt-Pmo Business Analyst), 10 MG PO 2XWEEKLY/UD Topiramate (Qudexy Xr), 200 MG PO DAILY Scheduled PRN Methocarbamol (Robaxin), 500-1,000 MG PO BID PRN for NECK PAIN, HEADACHES Prochlorperazine Maleate (Compazine), 10 MG PO Q6 PRN for Nausea Physical Exam Vital Signs Date Time Temp Pulse Resp B/P (MAP) Pulse Ox O2 Delivery O2 Flow Rate FiO2 08/07/17 02:36 60 18 126/86 96 Room Air 08/07/17 01:25 60 08/07/17 01:20 62 18 127/85 96 Room Air 08/07/17 01:19 96 Room Air 08/07/17 00:07 36.5 76 18 186/103 100 Room Air Physical Exam VITALS: Vitals are noted on the nurse's note and reviewed by myself. Vital signs hypertensive GENERAL: Pleasant female answering questions appropriately, in no acute distress , nondiaphoretic, well-developed well-nourished. SKIN: The skin was without rashes, erythema, edema, or bruising. There is no tenting of the skin. Capillary reflex less than 2 seconds. HEAD: Normocephalic atraumatic. EARS: External auditory canals clear, tympanic membranes pearly buenrostro without erythema or effusion bilaterally. EYES: Pupils equal round and reactive to light and accommodation. Conjunctivae without injection, sclerae without icterus. Extraocular movements intact. NOSE: Patent, turbinates without inflammation or discharge. No sinus tenderness. MOUTH: Mucous membranes moist. Pharynx without erythema or exudate. Uvula midline. Airway patent. Tongue does not deviate. NECK: Supple without nuchal rigidity. No lymphadenopathy. No thyromegaly. Cervical spine is nontender. No JVD. HEART: Regular rate and rhythm without murmurs gallops or rubs. LUNGS: Clear to auscultation bilaterally without wheezes, rales or rhonchi. No dullness to percussion. No retractions or accessory muscle use. ABDOMEN: Positive bowel sounds x 4. Normal tympanic percussion. Soft, nontender, without masses or organomegaly. Watson sign negative. No guarding or rebound tenderness. MUSCULOSKELETAL: No muscle atrophy, erythema, or edema noted. Varicose veins to bilateral lower legs. Left calf tenderness. 5 out of 5 strength throughout. NEURO: Patient was alert and oriented to person place and time. Normal sensation to light and sharp touch. No focal neurological deficits. Cerebellar exam intact. Cranial nerves II through 12 grossly intact. No pronator drift. Medical Decision & Procedures Laboratory Results 08/07/17 00:45 Red Blood Count 4.90, Mean Corpuscular Volume 92.4, Mean Corpuscular Hemoglobin 31.4, Mean Corpuscular Hemoglobin Concent 34.0, Mean Platelet Volume 12.5, Neutrophils (%) (Auto) 55.4, Lymphocytes (%) (Auto) 34.3, Monocytes (%) (Auto) 8.1, Eosinophils (%) (Auto) 1.5, Basophils (%) (Auto) 0.5, Neutrophils # (Auto) 7.26, Lymphocytes # (Auto) 4.49, Monocytes # (Auto) 1.06, Eosinophils # (Auto) 0.19, Basophils # (Auto) 0.06 08/07/17 00:45 Test 08/07/17 00:30 08/07/17 00:45 08/07/17 00:52 Influenza Type A (RT-PCR) Neg for Influ A (NEG) Influenza Type A Antigen Neg for Influ A (NEG) Influenza Type B Antigen Neg for Influ B (NEG) Influenza Type B (RT-PCR) Neg for Influ B (NEG) White Blood Count 13.09 K/uL (4.8-10.8) Red Blood Count 4.90 M/uL (4.2-5.4) Hemoglobin 15.4 g/dL (12.0-16.0) Hematocrit 45.3 % (37-47) Mean Corpuscular Volume 92.4 fL (80-100) Mean Corpuscular Hemoglobin 31.4 pg (25-34) Mean Corpuscular Hemoglobin Concent 34.0 g/dl (32-36) Platelet Count 219 K/uL (130-400) Mean Platelet Volume 12.5 fL (7.4-10.4) Neutrophils (%) (Auto) 55.4 % Lymphocytes (%) (Auto) 34.3 % Monocytes (%) (Auto) 8.1 % Eosinophils (%) (Auto) 1.5 % Basophils (%) (Auto) 0.5 % Neutrophils # (Auto) 7.26 K/uL (1.4-6.5) Lymphocytes # (Auto) 4.49 K/uL (1.2-3.4) Monocytes # (Auto) 1.06 K/uL (0.11-0.59) Eosinophils # (Auto) 0.19 K/uL (0-0.5) Basophils # (Auto) 0.06 K/uL (0-0.2) RDW Standard Deviation 45.3 fL (36.4-46.3) RDW Coefficient of Variation 13.4 % (11.5-14.5) Immature Granulocyte % (Auto) 0.2 % Immature Granulocyte # (Auto) 0.03 K/uL (0.00-0.02) Prothrombin Time 9.7 SECONDS (9.0-12.0) Prothromb Time International Ratio 0.9 (0.9-1.1) Activated Partial Thromboplast Time 27.4 SECONDS (21.0-31.0) Partial Thromboplastin Ratio 1.1 Urine Color YELLOW Urine Appearance CLEAR (CLEAR) Urine pH 7.5 (4.5-7.5) Urine Specific [place] 1.011 (1.000-1.030) Urine Protein NEG (NEG) Urine Glucose (UA) NEG (NEG) Urine Ketones NEG (NEG) Urine Occult Blood NEG (NEG) Urine Nitrite NEG (NEG) Urine Bilirubin NEG (NEG) Urine Urobilinogen NEG (NEG) Urine Leukocyte Esterase NEG (NEG) Anion Gap 6.0 mmol/L (3-11) Est Creatinine Clear Calc Drug Dose 115.4 ml/min Estimated GFR () 111.9 Estimated GFR (Non- 96.6 BUN/Creatinine Ratio 18.6 (10-20) Calcium Level 9.1 mg/dl (8.5-10.1) Magnesium Level 2.1 mg/dl (1.8-2.4) Total Bilirubin 0.2 mg/dl (0.2-1) Direct Bilirubin < 0.1 mg/dl (0-0.2) Aspartate Amino Transf (AST/SGOT) 7 U/L (15-37) Alanine Aminotransferase (ALT/SGPT) 22 U/L (12-78) Alkaline Phosphatase 84 U/L (45-117) Troponin I < 0.015 ng/ml (0-0.045) Total Protein 7.2 gm/dl (6.4-8.2) Albumin 3.6 gm/dl (3.4-5.0) Thyroid Stimulating Hormone (TSH) 1.350 uIu/ml (0.300-4.500) Human Chorionic Gonadotropin, Qual NEG (NEG) Bedside Troponin I < 0.030 ng/ml (0-0.045) Medications Administered Medications (Trade) Dose Ordered Sig/Dirk Route Start Time Stop Time Status Last Admin Dose Admin Diphenhydramine HCl (Benadryl Inj) 25 mg NOW STAT IV 08/07/17 00:40 08/07/17 00:42 DC 08/07/17 00:53 25 MG Metoclopramide HCl (Reglan Inj) 5 mg NOW STAT IV 08/07/17 00:40 08/07/17 00:42 DC 08/07/17 00:53 5 MG ED Course Prior records/ancillary studies reviewed and summarized above. Nursing notes reviewed. Additional history obtained from family. The patient's history was concerning for tingling, weakness, BHATT and neck pain. Differential diagnosis: Etiologies such as metabolic, infection, hypo/hyperglycemia, electrolyte abnormalities, cardiac sources, intracerebral event, toxicologic, neurologic, as well as others were entertained. Physical examination: As above. ER treatment provided: IV Lock reglan, benadryl On reassessment the patient felt better. Diagnostics interpretation by me: ECG: Normal sinus, normal intervals, no acute ST-T wave changes. Impression normal sinus rhythm interpreted by myself The labs revealed mild leukocytosis. Negative urine. Negative flu Imaging studies: Ultrasound negative for DVT. Head and neck CT negative for intracranial bleed or fracture per radiology Exam and history seems consistent with ongoing headaches and tingling for the past year and a half. Symptoms have been intermittent for a while. She follows with neurology. Patient was neurovascularly and neurologically intact. Unremarkable workup as above. She was able to ambulate without difficulties. She is advised to wear the RENU hose for varicose veins, rest, stay well- hydrated and follow-up with neurology within the week for further evaluation treatment for her ongoing symptoms or here in the ER sooner for chest pain, difficulty breathing, weakness, headaches, worsening signs or symptoms or as needed. Patient and related out of the ER without difficulties. Case management was asked to help facilitate follow-up neurology. By the evaluation outlined above emergent etiologies such as infection, electrolyte abnormalities , cardiac sources, intracerebral event, toxologic, neurologic, abnormalities blood glucose, metabolic, as well as others were deemed relatively unlikely. The pt informed about the findings as listed above. All questions were answered and pleased with the treatment. Return instructions were outlined and the patient was discharged in stable condition. Referral: The patient was referred back to neurology and primary care physician for follow -up in 2 to 3 days for a recheck of the current condition. Case reviewed with my Attending. Medical Decision as above Medication Reconcilliation Current Medication List: was personally reviewed by me Blood Pressure Screening Patient's blood pressure: Elevated blood pressure Blood pressure disposition: Referred to PCP Impression Primary Impression: Headache Additional Impression: Tingling in extremities Departure Information Dispostion Home / Self-Care Condition GOOD Referrals Pro,Alin Cazares M.D. (PCP) Patient Instructions [facility] Additional Instructions DO NOT drive, drink alcohol, operate machinery, or perform dangerous activities today. You were given medications in the ER that can affect your ability to safely function or operate a vehicle. Ibuprofen(Motrin, Advil) may be used for fever or pain. Use 600mg every six hours as needed. Take with food. Avoid using more than 2400mg in a 24 hour period. Do not use 2400mg per day for more than three consecutive days without physician direction. Prolonged inappropriate use can lead to stomach upset or ulcers. (AND/OR) Acetaminophen(Tylenol) may be used for fever or pain. Use 1000mg every six hours as needed. Avoid using more than 3000mg in a 24 hour period. Wear RENU hose throughout the day to help out with your varicose veins. Continue current medications. Return to the ER immediately for worsening or persistent headaches, tingling, weakness, abdominal pain, vomiting, fevers, chest pains, difficulty breathing, black or bloody stools, worsening of your condition, or as needed. Follow up with your primary physician and neurology in 2-3 days for a recheck of your current condition. Problem Qualifiers Primary Impression: Headache Headache type: unspecified Headache chronicity pattern: episodic headache Intractability: not intractable Qualified Codes: R51 - Headache
[2017-08-07 03:29] VITALS: BP 129/85; PULSE 65; O2SAT 95
--- NOTE | 2017-08-07 06:41 | DIAGNOSTIC IMAGING REPORT ---
CT HEAD WITHOUT CONTRAST (CT) CLINICAL HISTORY: Severe headache with neck pain COMPARISON STUDY: 10/25/2016 TECHNIQUE: Axial CT of the brain is performed from the vertex to the skull base. IV contrast was not administered for this examination. A dose lowering technique was utilized adhering to the principles of ALARA. CT DOSE: 1051.07 mGy.cm FINDINGS: No intra or extra-axial mass lesions are visualized. There is no CT evidence of acute cortical infarction. There is no evidence of midline shift. There is no acute hemorrhage. No calvarial fractures are visualized. There is no evidence of pathologic ventricular dilatation. There is no evidence of acute sinusitis IMPRESSION: No acute intracranial findings Electronically signed by: Tan Singletary M.D. 08/07/2017 6:40 AM Dictated Date/Time: 08/07/2017 6:39 AM
--- NOTE | 2017-08-07 06:44 | DIAGNOSTIC IMAGING REPORT ---
CT OF THE CERVICAL SPINE CLINICAL HISTORY: Neck pain and extremity numbness COMPARISON STUDY: 12/03/2015 CT DOSE: TECHNIQUE: CT scan of the cervical spine was performed from the skull base to the thoracic inlet. Images are reviewed in the axial, sagittal, and coronal planes. IV contrast was not administered for this examination. A dose lowering technique was utilized adhering to the principles of ALARA. FINDINGS: The visualized portions of the lung apices reveal no evidence of pneumothorax. The prevertebral soft tissues are normal. There is slight reversal the normal cervical lordosis. No spinal or foraminal stenosis is identified. Spinal cord evaluation is not possible on CT scanning. IMPRESSION: Slight reversal of the normal cervical lordosis. Otherwise unremarkable CT scan of the cervical spine Electronically signed by: Tan Singletary M.D. 08/07/2017 6:42 AM Dictated Date/Time: 08/07/2017 6:40 AM
--- NOTE | 2017-08-07 06:45 | DIAGNOSTIC IMAGING REPORT ---
ULTRASOUND VENOUS DOPPLER LWR EXT BILA CLINICAL HISTORY: leg cramping COMPARISON STUDY: December 2005 FINDINGS: Real-time and color flow Doppler imaging were performed. Flow was seen within the femoral, popliteal and calf veins with no intraluminal thrombus demonstrated. The saphenous vein is patent. IMPRESSION: No evidence of lower extremity DVT Electronically signed by: Tan Singletary M.D. 08/07/2017 6:44 AM Dictated Date/Time: 08/07/2017 6:44 AM
== END 2017-08-07 03:47 | disposition home or self-care (01) ==
LOC: C.EDB 00:04
DX: R51 Headache (principal); R20.2 Paresthesia of skin; E03.9 Hypothyroidism, unspecified; K21.9 Gastro-esophageal reflux disease without esophagitis; Z83.6 Family history of other diseases of the respiratory system; Z80.9 Family history of malignant neoplasm, unspecified; Z83.79 Family history of other diseases of the digestive system; F17.210 Nicotine dependence, cigarettes, uncomplicated; Z79.899 Other long term (current) drug therapy

== ENCOUNTER → 2017-08-23 | Outpatient (CLI) | payer OTHER ==
[~2017-08-23] MED LIST changes: +CYAN10005 PO; -FRCT/ PO; -RIBO100T2; +RIBO100T9 PO; +RIZA10TA19 PO; -TPM/50 PO
== END | disposition home or self-care (01) ==
LOC: C.LAB 15:07
PROVIDERS: ATTEND Internal Medicine
DX: R20.0 Anesthesia of skin (principal); M62.81 Muscle weakness (generalized)

== ENCOUNTER → 2017-08-27 | Outpatient (CLI) | payer OTHER ==
--- NOTE | 2017-08-30 15:50 | MAMMOGRAPHY REPORT ---
BILATERAL DIGITAL SCREENING MAMMOGRAM TOMOSYNTHESIS WITH CAD: 08/27/2017 CLINICAL HISTORY: Routine screening. TECHNIQUE: Breast tomosynthesis in addition to standard 2D mammography was performed. Current study was also evaluated with a Computer Aided Detection (CAD) system. COMPARISON: Comparison is made to exams dated: 07/24/2010 mammogram - [facility] a nd 07/04/2008. BREAST COMPOSITION: There are scattered areas of fibroglandular density in both breasts. FINDINGS: No suspicious masses, calcifications, or areas of architectural distortion are noted in ei ther breast. There has been no significant interval change compared to prior exams. IMPRESSION: ACR BI-RADS CATEGORY 1: NEGATIVE There is no mammographic evidence of malignancy. A 1 year screening mammogram is recommended. The pa tient will receive written notification of the results. Approximately 10% of breast cancers are not detected with mammography. A negative mammographic report should not delay biopsy if a clinically suggestive mass is present. Palak Mcrae M.D. ah/:08/27/2017 14:33:50 X Ray Control Equipment Repairer: Tiffani BARRETT(Kareem)(M), [facility] letter sent: Normal 1/2 BI-RADS Code: ACR BI-RADS Category 1: Negative
== END | disposition home or self-care (01) ==
LOC: C.MAMM 13:57
PROVIDERS: ATTEND Obstetrics & Gynecology
DX: Z12.31 Encounter for screening mammogram for malignant neoplasm of breast (principal)

== ENCOUNTER → 2017-10-22 | Outpatient (CLI) | payer OTHER ==
[~2017-10-22] MED LIST changes: +PREG1CAP28 PO
== END | disposition home or self-care (01) ==
LOC: C.LABPBG 12:09
PROVIDERS: ATTEND Internal Medicine
DX: A69.20 Lyme disease, unspecified (principal)

== ENCOUNTER → 2017-11-24 | Outpatient (CLI) | payer OTHER ==
[~2017-11-24] MED LIST changes: +GADAVIST IV PRN
--- NOTE | 2017-11-24 18:24 | DIAGNOSTIC IMAGING REPORT ---
MRI OF THE BRAIN WITHOUT AND WITH IV CONTRAST CLINICAL HISTORY: Encephalopathy. Post Lyme Syndrome. COMPARISON STUDY: MRI of the brain December 03, [address] August 07, 2017. TECHNIQUE: Utilizing a 1.5 Dang magnet and dedicated coil, multiplanar, multiecho imaging of the brain was performed pre and postcontrast administration. IV administration of 10 mL of Gadavist contrast was uneventful. FINDINGS: No foci of restricted diffusion are noted. No acute intracranial hemorrhage, midline shift or mass effect is present. Brain volume is normal. Ventricular system is normal. Basilar cisterns are patent. There are no extra-axial collections. Flow-voids for the major intracranial vessels are present. No foci of signal abnormality are identified within the brain parenchyma. Calvarial signal is maintained. Orbits are unremarkable. There is trace fluid within the inferior right mastoid air cells. IMPRESSION: Unremarkable MRI of the brain. Electronically signed by: Rubén Lemus M.D. 11/24/2017 6:22 PM Dictated Date/Time: 11/24/2017 6:17 PM
== END | disposition home or self-care (01) ==
LOC: C.MRI 17:03
PROVIDERS: ATTEND Internal Medicine
DX: G93.40 Encephalopathy, unspecified (principal)

== ENCOUNTER → 2017-12-22 | Outpatient (CLI) | payer OTHER ==
[~2017-12-22] MED LIST changes: -GADAVIST IV PRN; +PROC10TA PO; -PROC1TAB5 PO
[2017-12-22 16:55] LABS: ALBUMIN 3.8 gm/dl (3.4-5.0); ALKALINE PHOSPHATASE 92 U/L (45-117); ALT/SGPT 28 U/L (12-78); AST/SGOT 9 U/L (15-37); BLOOD UREA NITROGEN 10 mg/dl (7-18); CARBON DIOXIDE 30 mmol/L (21-32); CHOLESTEROL 158 mg/dl (0-200); GLUCOSE 77 mg/dl (70-99); LDL CHOLESTEROL CALCULATED 102 mg/dl; POTASSIUM 4.4 mmol/L (3.5-5.1); SODIUM 139 mmol/L (136-145); TOTAL PROTEIN 7.8 gm/dl (6.4-8.2)
== END | disposition home or self-care (01) ==
LOC: C.LAB1850 14:39
PROVIDERS: ATTEND Psychiatry & Neurology Neurology
DX: M62.81 Muscle weakness (generalized) (principal); E03.9 Hypothyroidism, unspecified; R73.9 Hyperglycemia, unspecified; E55.9 Vitamin D deficiency, unspecified